=== PATIENT | female | born 1955 | race Caucasian/White ===

== ENCOUNTER 2016-10-19 16:54 | Emergency (ER) | payer OTHER ==
[~2016-10-19] VITALS: Ht 172.7 cm; Wt 75.0 kg
[~2016-10-19 16:54] MED LIST: ASPI81TA82 PO; ATOR40TA49 PO; CORE6.25 PO; HYDR-3533 PO; KLON2TAB PO; LISI2.5T55 PO; RANI150 PO; SERT-129 PO
[2016-10-19 16:59] VITALS: BP 136/80; PULSE 63; RESP 15; TEMP 97.3; O2SAT 95
--- NOTE | 2016-10-19 17:28 | PD ---
HPI Chief Complaint: Fall Time Seen by Provider: 17:05 Travel History International Travel<30 days: No Contact w/Intl Traveler<30days: No Traveled to known affect area: No History of Present Illness HPI 61yo F with PMH of CAD s/p stent, PTSD, anxiety presents to the ED with c/o left buttocks pain and left shoulder pain s/p fall off ladder today. States she was trimming shrubs and was at the fifth step of the ladder and fell backwards on her left buttocks. States she sat there for about 10 minutes and then was able to ambulate after. Denies any head trauma, LOC, chest pain, sob, n/v, abdominal pain, urinary retention or incontinence, weakness or numbness in her legs. States she felt left shoulder pain and has left elbow abrasion with tingling at the tips of her left 1-3 digits. Pt able to urinate after without any difficulties. PFSH Past Medical History Hx Anticoagulant Therapy: Yes (81 MG ASA) Arthritis: Yes Anxiety: Yes Depression: Yes Cancer: No Cardiac Catheterization: Yes Cardiovascular Problems: Yes (STENT; HEART ATTACK 2013) Chest Pain: Yes Cerebrovascular Accident: No Diminished Hearing: No Endocrine: No Gastrointestinal Disorders: No Genitourinary: Yes Headaches: Yes Immune Disorder: No Implanted Vascular Access Dvce: No Kidney Stones: No Musculoskeletal: Yes (SPINAL STENOSIS) Neurologic: Yes Psychiatric: Yes Reproductive: Yes (FIBROIDS) Respiratory: No Immunizations Current: Yes Migraines: No Myocardial Infarction: Yes Renal Failure: No Seizures: No Menopausal: Yes Past Surgical History Section: Yes Coronary Stent: Yes (X1) Gynecologic Surgery: Yes (CECAREAN SECTION 38 YEARS AGO.) Other Surgery: Yes Social History Alcohol Use: Yes (VERY RARE) Tobacco Use: Yes (1/2) Substance Use: No Allergies-Medications (Allergen,Severity, Reaction): Coded Allergies: Venlafaxine (Verified Allergy, Severe, GI UPSET, 10/19/16) Reported Meds & Prescriptions Reported Meds & Active Scripts Active Reported Vitamin D3 (Cholecalciferol) 1,000 Unit Cap 1,000 Units PO DAILY Vitamin B12 (Cyanocobalamin) 100 Mcg Tab 1,000 Mcg PO DAILY Fish Oil ([place]-3 Fatty Acids) 500 Mg Cap 300 Mg PO TID Stool Softener (Docusate Sodium) 100 Mg Cap 1 Caplet PO DAILY PRN Citalopram (Citalopram Hydrobromide) 20 Mg Tab 20 Mg PO DAILY Clonazepam 2 Mg Tab 2 Mg PO TID Nitrostat SL (Nitroglycerin) 0.4 Mg Subl 0.4 Mg SL DIRECTED PRN 1 tablet under the tongue as needed for chest pain. Repeat every 5 minutes for a total of 3 DOSES or call 911 if NO relief. Lisinopril 10 Mg Tab 10 Mg PO BID Atorvastatin (Atorvastatin Calcium) 40 Mg Tab 40 Mg PO HS Carvedilol 6.25 Mg Tab 6.25 Mg PO BID Aspirin 81 Mg Tabdr 81 Mg PO DAILY Review of Systems Except as stated in HPI: all other systems reviewed are Neg Physical Exam Narrative GENERAL: 61yo F not in distress. SKIN: Warm and dry. HEAD: Atraumatic. Normocephalic. EYES: Pupils equal and round at 3mm bilaterally. EOMI. No scleral icterus. No injection or drainage. ENT: No nasal bleeding or discharge. Mucous membranes pink and moist. NECK: Trachea midline. No JVD. CARDIOVASCULAR: Regular rate and rhythm. No murmur appreciated. RESPIRATORY: No accessory muscle use. Clear to auscultation. Breath sounds equal bilaterally. GASTROINTESTINAL: Abdomen soft, non-tender, nondistended. No rebound tenderness or guarding. MUSCULOSKELETAL: +Ecchymoses left ischium ttp. +TTP S1. LUE: +TTP left shoulder but good ROM. +Small abrasion left olecranon but no ttp. Radial pulse 2+. NEUROLOGICAL: Awake and alert. No obvious cranial nerve deficits. Motor grossly within normal limits. Normal speech. PSYCHIATRIC: Appropriate mood and affect; insight and judgment normal. Data Data Last Documented VS Vital Signs Date Time Temp Pulse Resp B/P Pulse Ox O2 Delivery O2 Flow Rate FiO2 10/19/16 17:23 16 97 Room Air 10/19/16 16:59 97.3 63 136/80 Orders Pelvis, Ap Only (Routine) (10/19/16 ) Sacrum And Coccyx (10/19/16 ) Shoulder, Limited(2vws) (10/19/16 ) Ketorolac Inj (Toradol Inj) (10/19/16 17:30) Elbow, Limited (Ap&Lat) (10/19/16 ) Tetanus/Diphtheria Tox Adult (Tetanus/Di (10/19/16 18:45) MDM Medical Decision Making Medical Screen Exam Complete: Yes Emergency Medical Condition: Yes Differential Diagnosis Contusion vs. fracture Narrative Course 61yo F with left buttocks pain s/p fall from ladder today. Pt was able to ambulate after the fall and had no urinary complaints or neurologic deficits in her legs. Xray left elbow was negative. Xray of pelvis showed intact pelvis. Xray of sacrum and coccyx are intact. Xray left shoulder showed intact shoulder. Pt is well appearing and had no abdominal tenderness on exam. Pt given toradol 30mg IM. Tetanus is not up to date so tetanus given. Pt reevaluated at bedside and pain has improved. Muscle strength intact and equal bilaterally. Diagnosis Primary Impression: Fall Qualified Code: W19.XXXA - Fall, initial encounter Patient Instructions: General Instructions Departure Forms: Tests/Procedures Additional Instructions: Please follow up with your PMD in 3-7 days. Return to the ED if symptoms worsen. Med/Other Pt SpecificInfo: Prescription(s) given Scripts Acetaminophen (Acetaminophen Extra Strength)500 Mg [id number] Mg PO Q6H PRN (PAIN SCALE 1 TO 4) #20 TAB Ref 0 Prov:Asuncion Bloom DO 10/19/16 Disposition: 01 DISCHARGE HOME Condition: Stable Asuncion Bloom DO Oct 19, 2016 17:28
[2016-10-19] MEDS ORDERED: KETOROLAC TROMETHAMINE 60 MG/2 ML (IM) VIAL IM ONE (17:30)
[2016-10-19] MEDS ORDERED: CITA20TA4 PO (17:40)
[2016-10-19] MEDS ORDERED: FISH500C PO (17:40)
[2016-10-19] MEDS ORDERED: STOO100C PO (17:40)
[2016-10-19] MEDS ORDERED: NITR0.4S SL (17:40)
[2016-10-19] MEDS ORDERED: CARV6.252 PO (17:40)
[2016-10-19] MEDS ORDERED: VITA100036 PO (17:40)
[2016-10-19] MEDS ORDERED: ATOR40TA16 PO (17:40)
[2016-10-19] MEDS ORDERED: CLON2TAB PO (17:40)
[2016-10-19] MEDS ORDERED: ASPI1TAB69 PO (17:40)
[2016-10-19] MEDS ORDERED: LISI10TA3 PO (17:40)
[2016-10-19] MEDS ORDERED: VITA100T15 PO (17:40)
--- NOTE | 2016-10-19 17:53 | RADHPO ---
EXAM DATE/TIME: 10/19/2016 17:23 [facility] COMPARISON: No previous studies available for comparison. INDICATIONS : Pelvic discomfort; fell from ladder today. MEDICAL HISTORY : None. SURGICAL HISTORY : None. ENCOUNTER: Initial ACUITY: 1 day PAIN SCORE: 7/10 LOCATION: Bilateral posterior pelvis. FINDINGS: A single frontal view of the pelvis demonstrates no evidence of fracture. The bony pelvic ring is in tact. Bony mineralization is normal. The soft tissues are intact. CONCLUSION: Intact pelvis. Jose Alfredo Marie MD on October 19, 2016 at 17:52 Board Certified Radiologist. This report was verified electronically.
--- NOTE | 2016-10-19 17:54 | RADHPO ---
EXAM DATE/TIME: 10/19/2016 17:35 [facility] COMPARISON: No previous studies available for comparison. INDICATIONS : Left elbow discomfort and abrasions. MEDICAL HISTORY : None. SURGICAL HISTORY : None. ENCOUNTER: Initial ACUITY: 1 day PAIN SCORE: 2/10 LOCATION: Left posterior elbow. FINDINGS: Two view examination of the left elbow demonstrates no soft tissue swelling, joint effusion, fracture or dislocation. Bony mineralization is normal. CONCLUSION: 1. Negative examination of the elbow. Lopez Lopez MD on October 19, 2016 at 17:53 Board Certified Radiologist. This report was verified electronically.
--- NOTE | 2016-10-19 17:55 | RADHPO ---
EXAM DATE/TIME: 10/19/2016 17:28 [facility] COMPARISON: No previous studies available for comparison. INDICATIONS : Sacral pain from fall off ladder. MEDICAL HISTORY : None. SURGICAL HISTORY : None. ENCOUNTER: Initial ACUITY: 1 day PAIN SCORE: 7/10 LOCATION: Left buttock FINDINGS: Two-view examination of the sacrum and coccyx demonstrates no evidence of fracture or malalignment. The sacral ala and foramina appear symmetric and intact. The coccyx appears unremarkable. The preve rtebral soft tissues are within normal limits. CONCLUSION: Sacrum and coccyx are intact. Jose Alfredo Marie MD on October 19, 2016 at 17:52 Board Certified Radiologist. This report was verified electronically.
--- NOTE | 2016-10-19 17:56 | RADHPO ---
EXAM DATE/TIME: 10/19/2016 17:31 [facility] COMPARISON: No previous studies available for comparison. INDICATIONS : Left shoulder pain from fall off ladder. MEDICAL HISTORY : None. SURGICAL HISTORY : None. ENCOUNTER: Initial ACUITY: 1 day PAIN SCORE: 6/10 LOCATION: Left shoulder. FINDINGS: Two view examination of the left shoulder demonstrates no evidence of fracture or dislocation. The g lenohumeral and acromioclavicular joints are maintained. Bony mineralization is normal. CONCLUSION: Intact shoulder. Jose Alfredo Marie MD on October 19, 2016 at 17:54 Board Certified Radiologist. This report was verified electronically.
[2016-10-19 18:35] VITALS: RESP 16
[2016-10-19] MEDS ORDERED: ACET500T36 PO (18:35)
[2016-10-19] MEDS ORDERED: TETANUS/DIPHTHERIA TOXOID ADULT 0.5 ML VIAL IM ONE (18:45)
[2016-10-19 19:15] VITALS: BP 166/69
== END 2016-10-19 19:30 | disposition home or self-care (01) ==
LOC: PHED 16:54
DX: M25.512 Pain in left shoulder (principal); M53.3 Sacrococcygeal disorders, not elsewhere classified; S50.312A Abrasion of left elbow, initial encounter; M79.1 Myalgia; W11.XXXA Fall on and from ladder, initial encounter; Y93.H2 Activity, gardening and landscaping; Z23 Encounter for immunization; Z72.0 Tobacco use; Z79.82 Long term (current) use of aspirin; Z87.39 Personal history of other diseases of the musculoskeletal system and connective tissue; Z86.79 Personal history of other diseases of the circulatory system; Z87.448 Personal history of other diseases of urinary system; Z86.69 Personal history of other diseases of the nervous system and sense organs; Z87.42 Personal history of other diseases of the female genital tract; Z86.59 Personal history of other mental and behavioral disorders
CPT/HCPCS: 72170; 72220; 73030; 73070; 90471; 90714; 96372; 99283; J1885

== ENCOUNTER 2016-12-08 14:10 | Observation (INO) | payer OTHER ==
[2016-12-08] VITALS (8 sets, daily range): BP systolic 117–144; BP diastolic 58–77; PULSE 49–62; RESP 16–18; TEMP 96.6–98.1; O2SAT 96–100
[~2016-12-08] VITALS: Ht 172.7 cm; Wt 72.1 kg
[~2016-12-08 14:10] MED LIST changes: +ACET500T36 PO; +ASPI1TAB69 PO; -ASPI81TA82 PO; +ATOR40TA16 PO; -ATOR40TA49 PO; +CARV6.252 PO; +CITA20TA4 PO; +CLON2TAB PO; -CORE6.25 PO; +FISH500C PO; -HYDR-3533 PO; -KLON2TAB PO; +LISI10TA3 PO; -LISI2.5T55 PO; +NITR0.4S SL; -RANI150 PO; -SERT-129 PO; +STOO100C PO; +VITA100036 PO; +VITA100T15 PO
--- NOTE | 2016-12-08 14:59 | PD ---
HPI Chief Complaint: Chest Pain Time Seen by Provider: 14:33 Travel History International Travel<30 days: No Contact w/Intl Traveler<30days: No Traveled to known affect area: No History of Present Illness HPI The patient was seen and examined in the presence of the nurse. This patient complains of chest pain. She's had symptoms on and off for the last 2 weeks. Located in the left chest and somewhat in her left side. She had the same kind of symptoms last summer and the ER physician recommended chest pain center evaluation and she left AGAINST MEDICAL ADVICE. She's not had any stress testing since. She does have history of CAD and has a stent in position. She is currently chest pain-free. She took an aspirin prior to arrival. She also complains of a bit of fluttering in the right side of her chest is not pain and new for the last 2 days. Severity is moderate. No alleviating factors. PFSH Past Medical History Hx Anticoagulant Therapy: Yes (81 MG ASA) Arthritis: Yes Anxiety: Yes Depression: Yes Cancer: No Cardiac Catheterization: Yes Cardiovascular Problems: Yes (STENT; HEART ATTACK 2013) Chest Pain: Yes Cerebrovascular Accident: No Diminished Hearing: No Endocrine: No Gastrointestinal Disorders: No Genitourinary: Yes (Hematuria ) Headaches: Yes Immune Disorder: No Implanted Vascular Access Dvce: No Kidney Stones: No Musculoskeletal: Yes (Spinal stenosis) Neurologic: Yes Psychiatric: Yes Reproductive: Yes (Fibroids) Respiratory: No Immunizations Current: Yes Migraines: No Myocardial Infarction: Yes (X's 1) Renal Failure: No Seizures: No Tetanus Vaccination: < 5 Years Influenza Vaccination: Yes ?: Not Menopausal: Yes Past Surgical History Section: Yes (X's 1) Coronary Stent: Yes (X's 1, December 2013) Gynecologic Surgery: Yes (CECAREAN SECTION 38 YEARS AGO.) Other Surgery: Yes Social History Alcohol Use: Yes ("Rarely?) Tobacco Use: Yes (08/16 PPD) Substance Use: No Allergies-Medications (Allergen,Severity, Reaction): Coded Allergies: Venlafaxine (Verified Allergy, Severe, GI UPSET, 12/08/16) Reported Meds & Prescriptions Reported Meds & Active Scripts Active Acetaminophen Extra Strength (Acetaminophen) 500 Mg Tab 500 Mg PO Q6H PRN Reported Vitamin D3 (Cholecalciferol) 1,000 Unit Cap 1,000 Units PO DAILY Vitamin B12 (Cyanocobalamin) 100 Mcg Tab 1,000 Mcg PO DAILY Fish Oil ([place]-3 Fatty Acids) 500 Mg Cap 300 Mg PO TID Stool Softener (Docusate Sodium) 100 Mg Cap 1 Caplet PO DAILY PRN Citalopram (Citalopram Hydrobromide) 20 Mg Tab 20 Mg PO DAILY Clonazepam 2 Mg Tab 2 Mg PO TID Nitrostat SL (Nitroglycerin) 0.4 Mg Subl 0.4 Mg SL DIRECTED PRN 1 tablet under the tongue as needed for chest pain. Repeat every 5 minutes for a total of 3 DOSES or call 911 if NO relief. Lisinopril 10 Mg Tab 10 Mg PO BID Atorvastatin (Atorvastatin Calcium) 40 Mg Tab 40 Mg PO HS Carvedilol 6.25 Mg Tab 6.25 Mg PO BID Aspirin 81 Mg Tabdr 81 Mg PO DAILY Review of Systems General / Constitutional: No: Fever Eyes: No: Visual changes HENT: No: Headaches Cardiovascular: Positive: Chest Pain or Discomfort, Palpitations Respiratory: No: Shortness of Breath Gastrointestinal: No: Abdominal Pain Genitourinary: No: Dysuria Musculoskeletal: No: Pain Skin: No Rash Neurologic: No: Weakness Psychiatric: No: Depression Endocrine: No: Polydipsia Hematologic/Lymphatic: No: Easy Bruising Physical Exam Narrative GENERAL: Well-nourished, well-developed patient in no apparent distress. SKIN: Focused skin assessment reveals no rash and nodules. Skin is Warm and dry. HEAD: Atraumatic. Normocephalic. EYES: Pupils equal and round. No scleral icterus. No injection or drainage. ENT: No nasal bleeding or discharge. Mucous membranes pink and moist. NECK: Trachea midline. No JVD. CARDIOVASCULAR: Regular rate and rhythm. No murmur appreciated. RESPIRATORY: No accessory muscle use. Clear to auscultation. Breath sounds equal bilaterally. GASTROINTESTINAL: Abdomen soft, non-tender, nondistended. Hepatic and splenic margins not palpable. MUSCULOSKELETAL: No obvious deformities. No clubbing. No cyanosis. No edema. NEUROLOGICAL: Awake and alert. No obvious cranial nerve deficits. Motor grossly within normal limits. Normal speech. PSYCHIATRIC: Appropriate mood and affect; insight and judgment normal. Data Data Last Documented VS Vital Signs Date Time Temp Pulse Resp B/P Pulse Ox O2 Delivery O2 Flow Rate FiO2 12/08/16 15:26 Room Air 12/08/16 15:20 51 16 117/64 96 12/08/16 14:15 98.1 Orders Electrocardiogram (12/08/16 14:56) Basic Metabolic Panel (Bmp) (12/08/16 14:56) Ckmb (Isoenzyme) Profile (12/08/16 14:56) Complete Blood Count With Diff (12/08/16 14:56) Prothrombin Time / Inr (Pt) (12/08/16 14:56) Act Partial Throm Time (Ptt) (12/08/16 14:56) Troponin I (12/08/16 14:56) Chest, Single Ap (12/08/16 14:56) Ecg Monitoring (12/08/16 14:56) Iv Access Insert/Monitor (12/08/16 14:56) Oximetry (12/08/16 14:56) Sodium Chloride 0.9% Flush (Ns Flush) (12/08/16 15:00) Labs Laboratory Tests Test 12/08/16 15:05 White Blood Count 7.2 TH/MM3 Red Blood Count 4.47 MIL/MM3 Hemoglobin 13.6 GM/DL Hematocrit 41.8 % Mean Corpuscular Volume 93.4 FL Mean Corpuscular Hemoglobin 30.5 PG Mean Corpuscular Hemoglobin 32.7 % Concent Red Cell Distribution Width 13.4 % Platelet Count 181 TH/MM3 Mean Platelet Volume 7.8 FL Neutrophils (%) (Auto) 51.5 % Lymphocytes (%) (Auto) 39.1 % Monocytes (%) (Auto) 7.0 % Eosinophils (%) (Auto) 1.9 % Basophils (%) (Auto) 0.5 % Neutrophils # (Auto) 3.8 TH/MM3 Lymphocytes # (Auto) 2.8 TH/MM3 Monocytes # (Auto) 0.5 TH/MM3 Eosinophils # (Auto) 0.1 TH/MM3 Basophils # (Auto) 0.0 TH/MM3 CBC Comment DIFF FINAL Differential Comment Prothrombin Time 10.9 SEC Prothromb Time International 1.0 RATIO Ratio Activated Partial 25.5 SEC Thromboplast Time Sodium Level 145 MEQ/L Potassium Level 3.8 MEQ/L Chloride Level 107 MEQ/L Carbon Dioxide Level 30.6 MEQ/L Anion Gap 7 MEQ/L Blood Urea Nitrogen 14 MG/DL Creatinine 1.10 MG/DL Estimat Glomerular Filtration 50 ML/MIN Rate Random Glucose 75 MG/DL Calcium Level 8.7 MG/DL Total Creatine Kinase 95 U/L Troponin I LESS THAN 0.02 NG/ML MDM Medical Decision Making Medical Screen Exam Complete: Yes Emergency Medical Condition: Yes Medical Record Reviewed: Yes Differential Diagnosis Differential diagnosis includes RI, angina, pericarditis, pleurisy, GERD, anxiety. Narrative Course I have reviewed the patient's electronic medical record. Reviewed her February 2016 ER evaluation for chest pain IV placed I reviewed the EKG which shows sinus rhythm but no acute ST elevation I reviewed the chest x-ray which is normal Extended cardiac monitoring shows sinus rhythm without ectopy CBC is normal Metabolic profile is normal CK is normal Troponin is normal Coagulation studies are normal Patient has known coronary artery disease. Workup here is negative. I'm recommending 23 hour observation in the chest pain center in order to rule out cardiac cause of her symptoms. Patient is agreeable. I reviewed with the hospitalist. Diagnosis Primary Impression: Chest pain in adult Additional Impression: Coronary artery disease Qualified Code: I25.10 - Coronary artery disease due to calcified coronary lesion Admitting Information Admitting Physician Requests: Observation Humphrey Hill MD Dec 08, 2016 14:59
[2016-12-08] MEDS ORDERED: SODIUM CHLORIDE 0.9% FLUSH 10 ML FLUSH IVF PRN (15:00)
[2016-12-08 15:24] LABS: AUTOMATED NEUTROPHIL # 3.8 TH/MM3 (1.8-7.7); BASOPHIL % 0.5 % (0.0-2.0); EOSINOPHIL # 0.1 TH/MM3 (0-0.4); EOSINOPHIL % 1.9 % (0.0-4.0); HEMATOCRIT 41.8 % (35.0-46.0); HEMO FLAGS DIFF FINAL; LYMPH % 39.1 % (9.0-44.0); LYMPHOCYTE # 2.8 TH/MM3 (1.0-4.8); MEAN CELL VOLUME 93.4 FL (80.0-100.0); MEAN CORPUSCULAR HEMOGLOBIN 30.5 PG (27.0-34.0); MEAN CORPUSCULAR HGB CONC 32.7 % (32.0-36.0); NEUT % 51.5 % (16.0-70.0); PLATELET COUNT 181 TH/MM3 (150-450); RED BLOOD COUNT 4.47 MIL/MM3 (4.00-5.30); RED CELL DISTRIBUTION WIDTH 13.4 % (11.6-17.2); WHITE BLOOD COUNT 7.2 TH/MM3 (4.0-11.0)
[2016-12-08 15:36] LABS: CHLORIDE 107 MEQ/L (98-107); POTASSIUM 3.8 MEQ/L (3.5-5.1); SODIUM (NA) 145 MEQ/L (136-145)
[2016-12-08 15:40] LABS: ANION GAP 7 MEQ/L (5-15); BICARBONATE 30.6 MEQ/L (21.0-32.0); BLOOD UREA NITROGEN 14 MG/DL (7-18)
[2016-12-08 15:43] LABS: APTT (PATIENT) 25.5 SEC (24.3-30.1); GLOMERULAR FILTRATION RATE 50 ML/MIN (>89); PROTHROMBIN TIME - PATIENT 10.9 SEC (9.8-11.6)
--- NOTE | 2016-12-08 15:43 | RADHPO ---
EXAM DATE/TIME: 12/08/2016 15:08 [facility] COMPARISON: CHEST SINGLE AP, March 10, 2016, 12:26. INDICATIONS : Left chest discomfort. MEDICAL HISTORY : Myocardial infarction. SURGICAL HISTORY : Coronary artery stent. ENCOUNTER: Initial ACUITY: 1 day PAIN SCORE: 3/10 LOCATION: Left chest FINDINGS: A single view of the chest demonstrates the lungs to be symmetrically aerated without evidence of mas s, infiltrate or effusion. The cardiomediastinal contours are unremarkable. Osseous structures are intact. CONCLUSION: No acute disease. Jim Easton MD FACR on December 08, 2016 at 15:41 Board Certified Radiologist. This report was verified electronically.
[2016-12-08 15:50] LABS: CREATINE KINASE 95 U/L (26-192)
[2016-12-08] MEDS ORDERED: NALOXONE HCL 0.4 MG/ML AMP IV PRN (17:15)
[2016-12-08] MEDS ORDERED: MORPHINE SULFATE 4 MG/ML INJ IV PRN (17:15)
[2016-12-08] MEDS ORDERED: SODIUM CHLORIDE 0.9% FLUSH 10 ML FLUSH IV FLUSH PRN (17:15)
[2016-12-08] MEDS: DOCUSATE SODIUM 100 MG CAP PO SCH (20:28)
[2016-12-08] MEDS: LISINOPRIL 10 MG TAB PO SCH (20:28)
[2016-12-08] MEDS: ATORVASTATIN 40 MG TAB PO SCH (20:28)
[2016-12-08] MEDS: SODIUM CHLORIDE 0.9% FLUSH 10 ML FLUSH IV FLUSH SCH (20:29)
[2016-12-08] MEDS ORDERED: CARVEDILOL 6.25 MG TAB PO SCH (21:00)
[2016-12-09] VITALS (11 sets, daily range): BP systolic 127–153; BP diastolic 68–79; PULSE 48–60; RESP 16–20; TEMP 97.3–98.5; O2SAT 95–98
[2016-12-09 07:23] LABS: AUTOMATED NEUTROPHIL # 3.4 TH/MM3 (1.8-7.7); BASOPHIL % 0.5 % (0.0-2.0); EOSINOPHIL # 0.2 TH/MM3 (0-0.4); EOSINOPHIL % 2.2 % (0.0-4.0); HEMATOCRIT 41.7 % (35.0-46.0); HEMO FLAGS DIFF FINAL; LYMPH % 41.8 % (9.0-44.0); LYMPHOCYTE # 2.9 TH/MM3 (1.0-4.8); MEAN CELL VOLUME 92.4 FL (80.0-100.0); MEAN CORPUSCULAR HEMOGLOBIN 31.5 PG (27.0-34.0); MEAN CORPUSCULAR HGB CONC 34.1 % (32.0-36.0); MONO % 7.6 % (0.0-8.0); NEUT % 47.9 % (16.0-70.0); PLATELET COUNT 152 TH/MM3 (150-450); RED BLOOD COUNT 4.51 MIL/MM3 (4.00-5.30); RED CELL DISTRIBUTION WIDTH 12.9 % (11.6-17.2)
[2016-12-09 07:41] LABS: POTASSIUM 3.9 MEQ/L (3.5-5.1)
[2016-12-09 07:42] LABS: BICARBONATE 30.3 MEQ/L (21.0-32.0)
--- NOTE | 2016-12-09 08:16 | HHI.HP ---
[facility] Kendy Jackman Admission Diagnosis chest pain Diagnoses: (1) Chest pain in adult Diagnosis: Principal (2) Coronary artery disease Diagnosis: Secondary (3) Hypertension Diagnosis: Secondary (4) Hyperlipidemia Diagnosis: Secondary (5) History of coronary artery stent placement Diagnosis: Secondary (6) Tobacco abuse Diagnosis: Secondary Chief Complaint: Chest pain Travel History International Travel<30 Days: No Contact w/Intl Traveler <30 Da: No Traveled to Known Affected Are: No History of Present Illness 61-year-old female with known history of hypertension, hyperlipidemia , coronary disease, cardiomyopathy with ejection fraction 2530 percent, coronary artery disease status post stenting of OM, tobacco use, anxiety and depression who presented to hospital because of chest discomfort. Patient states that she is had chest discomfort for the last 2 weeks. She states it is located on the left side of her chest, left rib cage area and into her left back. She states that happens approximate 45 times a day lasting for a couple minutes at a time. The pain can happen at rest and exertion. It is worsened whenever she is walking the dog and holding the leash on that side. It is reproducible on palpation. She denies any alleviating factors that resolved on its own. She denies any nausea, vomiting, diaphoresis, shortness of breath, dyspnea, lightheadedness, dizziness. Because she had a previous heart attack 3 years ago she came to the hospital for evaluation. She is followed by her primary medical doctor on a regular basis. She does go to Dr. Camacho on a yearly basis. Plans for echocardiogram to be done in May of this year. Patient denies any recent stress testing. Review of Systems Constitutional: DENIES: Diaphoretic episodes, Fatigue, Fever, Weight gain, Weight loss, Chills, Dizziness, Change in appetite, Night Sweats Eyes: DENIES: Blurred vision, Diplopia, Eye inflammation, Eye pain, Vision loss , Double Vision Ears, nose, mouth, throat: DENIES: Hearing loss, Vertigo, Nasal discharge, Throat pain, Ear Pain, Running Nose, Sinus Pain Respiratory: COMPLAINS OF: Cough, DENIES: Apneas, Snoring, Wheezing, Hemoptysis, Sputum production, Shortness of breath Cardiovascular: COMPLAINS OF: Chest pain, DENIES: Palpitations, Syncope, Dyspnea on Exertion, Lower Extremity Edema, Orthopnea Gastrointestinal: DENIES: Abdominal pain, Black stools, Bloody stools, Constipation, Diarrhea, Nausea, Vomiting, Difficulty Swallowing, Anorexia Psychiatric: COMPLAINS OF: Anxiety, Depression, DENIES: Confusion, Mood changes Past Family Social History Past Medical History Hypertension Hyperlipidemia History myocardial infarction Coronary artery disease status post stenting of OM Cardiomyopathy with ejection fraction 2530 percent Tobacco use Anxiety and depression Spinal stenosis Past Surgical History Cardiac catheterization with stenting of OM Reported Medications Reported Meds & Active Scripts Active Acetaminophen Extra Strength (Acetaminophen) 500 Mg Tab 500 Mg PO Q6H PRN Reported Vitamin D3 (Cholecalciferol) 1,000 Unit Cap 1,000 Units PO DAILY Vitamin B12 (Cyanocobalamin) 100 Mcg Tab 1,000 Mcg PO DAILY Fish Oil (Ste[place]-3 Fatty Acids) 500 Mg Cap 300 Mg PO TID Stool Softener (Docusate Sodium) 100 Mg Cap 1 Caplet PO DAILY PRN Citalopram (Citalopram Hydrobromide) 20 Mg Tab 20 Mg PO DAILY Clonazepam 2 Mg Tab 2 Mg PO TID Nitrostat SL (Nitroglycerin) 0.4 Mg Subl 0.4 Mg SL DIRECTED PRN 1 tablet under the tongue as needed for chest pain. Repeat every 5 minutes for a total of 3 DOSES or call 911 if NO relief. Lisinopril 10 Mg Tab 10 Mg PO BID Atorvastatin (Atorvastatin Calcium) 40 Mg Tab 40 Mg PO HS Carvedilol 6.25 Mg Tab 6.25 Mg PO BID Aspirin 81 Mg Tabdr 81 Mg PO DAILY Allergies: Coded Allergies: Venlafaxine (Verified Allergy, Severe, GI UPSET, 12/08/16) Family History Reviewed is significant for both mother and father with heart disease. Denies any lung disease, cancer, seizures, stroke Social History Patient is trying to quit cigarettes. She is up to a pack a cigarettes a day since she was in [employer]. Does drink alcohol rarely. Denies any illicit drugs Physical Exam Vital Signs Vital Signs Date Time Temp Pulse Resp B/P Pulse Ox O2 Delivery O2 Flow Rate FiO2 12/09/16 04:11 97.3 50 16 127/71 96 12/09/16 00:26 97.7 48 16 130/76 97 12/08/16 20:54 51 12/08/16 20:29 96.6 50 16 144/77 96 12/08/16 20:02 62 12/08/16 18:35 51 16 133/58 95 12/08/16 17:30 52 16 135/63 96 Room Air 12/08/16 17:30 Room Air 12/08/16 16:44 49 18 128/70 100 Room Air 12/08/16 15:26 Room Air 12/08/16 15:20 51 16 117/64 96 Room Air 12/08/16 14:30 60 12/08/16 14:15 98.1 60 16 123/71 98 Physical Exam GENERAL: Well-developed, well-nourished, in no acute distress. alert and orientated HEENT: Head is normocephalic without any lesions or masses noted. Facial features are symmetric. Eyes: Pupils equal round reactive to light. Extraocular muscles are intact. Conjunctivae were clear. Oropharyngeal: Pharynx without any erythema edema. Tongue is midline without deviation. Buccal mucosa is moist without any masses or lesions NECK: Supple without any masses. Trachea midline no deviation. No JVD, no bruits are appreciated CARDIAC: Regular rhythm, regular rate. S1/S2 are heard. No murmurs gallops or rubs. Reproducible palpable tenderness along the fifth and sixth rib on lateral chest LUNGS: Clear to auscultation bilaterally. No wheeze, rhonchi or rales. No use of accessory muscles on inspiration or expiration. ABDOMEN: Soft, nontender. Nondistended. Bowel sounds heard in all 4 quadrants. No organomegaly or masses. Negative rebound, negative guarding EXTREMITIES: No edema, pulses are equal bilaterally. No cyanosis or clubbing NEUROLOGY: Mood and affect appear appropriate. Cranial nerves II through XII grossly intact. Muscle strength 5/5 in upper and lower extremities bilaterally. Deep tendon reflexes are 2+ in upper and lower extremities bilaterally. Laboratory Laboratory Tests Test 12/08/16 12/08/16 12/08/16 12/09/16 15:05 18:10 21:10 06:13 White Blood Count 7.2 7.0 Red Blood Count 4.47 4.51 Hemoglobin 13.6 14.2 Hematocrit 41.8 41.7 Mean Corpuscular Volume 93.4 92.4 Mean Corpuscular Hemoglobin 30.5 31.5 Mean Corpuscular Hemoglobin 32.7 34.1 Concent Red Cell Distribution Width 13.4 12.9 Platelet Count 181 152 Mean Platelet Volume 7.8 8.4 Neutrophils (%) (Auto) 51.5 47.9 Lymphocytes (%) (Auto) 39.1 41.8 Monocytes (%) (Auto) 7.0 7.6 Eosinophils (%) (Auto) 1.9 2.2 Basophils (%) (Auto) 0.5 0.5 Neutrophils # (Auto) 3.8 3.4 Lymphocytes # (Auto) 2.8 2.9 Monocytes # (Auto) 0.5 0.5 Eosinophils # (Auto) 0.1 0.2 Basophils # (Auto) 0.0 0.0 CBC Comment DIFF FINAL DIFF FINAL Differential Comment Prothrombin Time 10.9 Prothromb Time International 1.0 Ratio Activated Partial 25.5 Thromboplast Time Sodium Level 145 147 Potassium Level 3.8 3.9 Chloride Level 107 108 Carbon Dioxide Level 30.6 30.3 Anion Gap 7 9 Blood Urea Nitrogen 14 14 Creatinine 1.10 0.88 Estimat Glomerular Filtration 50 65 Rate Random Glucose 75 87 Calcium Level 8.7 9.0 Total Creatine Kinase 95 Troponin I LESS THAN 0.02 LESS THAN 0.02 LESS THAN 0.02 Result Diagram: 12/09/16 0613 12/09/16 0613 Imaging Last Impressions Chest X-Ray 12/08/16 1456 Signed Impressions: Service Date/Time: Thursday, December 08, 2016 15:08 - CONCLUSION: No acute disease. Jim Easton MD FACR Assessment and Plan Assessment and Plan 61-year-old female who has known history of significant cardiac history who presented to hospital with two-week history of intermittent self resolving chest discomfort Chest pain, atypical Likely musculoskeletal as the pt fell off of a ladder three weeks ago and hurt the same area. The site is tender to palpation. Patient with increased risk factors to include age, hypertension, hyperlipidemia, coronary disease, cardiomyopathy, tobacco use, family history of heart disease Patient has been ruled out for acute coronary event with serial cardiac enzymes which are negative Serial EKGs were performed and reviewed by myself and compared to old EKGs. At this time patient has extensive ST-T changes, which compared to previous seen to have improved We'll pursue nuclear stress test rule out any underlying ischemia Aspirin, Coreg, atorvastatin, lisinopril has been continued. -- pain control for costochondritis. Hypertension, hyperlipidemia, coronary artery disease, cardiomyopathy, history of myocardial infarctions Home medications have been continued Anxiety depression Home medications have been continued DVT prevention Sequential compression devices Written by Humphrey Mckeon, acting as scribe for Dr. Zarate on 12/09/16 at 08: 15. Discharge disposition Discharge home in stable condition if stress test is negative Activity: Ad lawrence. Diet: Healthy heart diet Medications per medication reconciliation Follow-up with primary medical doctor and [employer] in one week Discussed Condition With This note was transcribed by scribe Humphrey Mckeon. I, Dr. Williams Zarate personally performed the history, physical exam, and medical decision making; and confirmed the accuracy of the information in the transcribed note. Authenticated by Dr. Williams Zarate on 12/09/16 at 13:42. Problem Qualifiers (1) Coronary artery disease: Qualified Code: I25.10 - Coronary artery disease due to calcified coronary lesion (2) Hypertension: Qualified Code: I15.9 - Secondary hypertension (3) Hyperlipidemia: Qualified Code: E78.5 - Hyperlipidemia, unspecified hyperlipidemia type Humphrey Mckeon Dec 09, 2016 08:16 Williams Zarate DO Dec 09, 2016 13:42
[2016-12-09] MEDS: DOCUSATE SODIUM 100 MG CAP PO SCH ×2 (09:00→21:00)
[2016-12-09] MEDS: LISINOPRIL 10 MG TAB PO SCH ×2 (09:00→21:45)
[2016-12-09] MEDS: CITALOPRAM HYDROBROMIDE 20 MG TAB PO SCH (10:11)
[2016-12-09] MEDS: ASPIRIN EC 81 MG TABEC PO SCH (10:12)
[2016-12-09] MEDS: SODIUM CHLORIDE 0.9% FLUSH 10 ML FLUSH IV FLUSH SCH ×2 (10:13→21:44)
[2016-12-09] MEDS ORDERED: REGADENOSON INJ 0.4 MG/5 ML SYR IV ONE (13:10)
--- NOTE | 2016-12-09 13:46 | RADHPO ---
EXAM DATE/TIME: 12/09/2016 12:39 [place] COMPARISON: No previous studies available for comparison. INDICATIONS : Left sided chest pain for two weeks. ST segment changes. Myocardial infarction. DOSE: 26.7 mCi Tc99m Myoview at stress. 8.7 mCi Tc99m Myoview at rest. 0.4 mg Lexiscan STRESS SYMPTOMS: Shortness of breath and flush. EJECTION FRACTION: 30% MEDICAL HISTORY : Hypertension. Cardiovascular disease SURGICAL HISTORY : section. Coronary artery stent. ENCOUNTER: Initial ACUITY: 2 weeks PAIN SCALE: 7/10 LOCATION: Left chest TECHNIQUE: The patient underwent pharmacologic stress with infusion of prescribed dose. Continuous ECG tracing was monitored during stress. Gated SPECT imaging was performed after stress and conventional SPECT i maging was performed at rest. The examination was performed on a SPECT/CT scanner, both attenuation and non-corrected datasets were reviewed. FINDINGS: DISTRIBUTION: The maximum perfused segment at stress is in the septal wall. PERFUSION STUDY: There is a small fixed anterior wall defect identified. There is also a small reversible defect suspe cted at the inferior wall. 3GATED STUDY: There is global hypokinesis. CONCLUSION: 1. Global hypokinesis with ejection fraction of 30%. 2. Reversible perfusion defect inferior wall and fixed anterior wall defect. RISK CATEGORY: High (>3% Annual Mortality Rate) Andrew Lyon MD on December 09, 2016 at 13:42 Board Certified Radiologist. This report was verified electronically.
--- NOTE | 2016-12-09 13:55 | TR ---
Date Performed: 12/09/2016 Time Performed: 12:59:18 DOCTOR: Uri Oneal DRUG LIST: CLINICAL HISTORY: CHEST PAIN REASON FOR TEST: Chest pain WITH ST CHANGES REASON FOR ENDING: OBSERVATION: CONCLUSION: Lexiscan stress test was performed under standard four minute protocol. Radionuclide was injected one minute prior to ending the test. Developed shortness of breath and felt hot. ECG tr acings at peak stress show borderline ischemic changes leads II, III, AVF and V6. Recovery was quick and uneventful with resolution of symptoms. Nuclear imaging and interpretation are pending. COMMENTS:
[2016-12-09] MEDS: CARVEDILOL 3.125 MG TAB PO SCH ×2 (14:00→21:00)
--- NOTE | 2016-12-09 19:14 | EKG ---
Date Performed: 12/08/2016 Time Performed: 21:07:28 PTAGE: 61 years EKG: Sinus bradycardia. Extensive ST-T changes Abnormal ECG PREVIOUS TRACING : 12/08/2016 14.33 Compared to prior tracing no significant change DOCTOR: Conrad Cardoza Interpretating Date/Time 12/09/2016 19:12:40
--- NOTE | 2016-12-09 19:20 | EKG ---
Date Performed: 12/08/2016 Time Performed: 17:59:56 PTAGE: 61 years EKG: Sinus bradycardia Extensive ST-T changes Abnormal ECG PREVIOUS TRACING : 12/08/2016 14.33 Compared to prior tracing no significant change DOCTOR: Conrad Cardoza Interpretating Date/Time 12/09/2016 19:19:31
--- NOTE | 2016-12-09 19:27 | EKG ---
Date Performed: 12/08/2016 Time Performed: 14:33:56 PTAGE: 61 years EKG: Sinus bradycardia Extensive ST-T changes Abnormal ECG PREVIOUS TRACING : 03/10/2016 12.24 Compared to prior tracing no significant change DOCTOR: Conrad Cardoza Interpretating Date/Time 12/09/2016 19:25:45
--- NOTE | 2016-12-09 20:01 | MB ---
cc: VALENTINA NICOLE DATE OF CONSULTATION: 12/09/2016. REASON FOR CONSULTATION: Chest pain. HISTORY OF PRESENT ILLNESS: 61-year-old female with past medical history significant for coronary artery disease status post percutaneous coronary intervention and drug-eluting stent in 2013 in the setting of a STEMI, hypertension, hyperlipidemia, active smoker, severe systolic dysfunction with an ejection fraction of 30% who presented to the [facility] complaint of chest discomfort. She was admitted for cardiac rule out. She had an unremarkable EKG as well as cardiac markers. Myocardial perfusion study ordered revealed a fixed defect in the anterior wall and a reversible defect in the inferior wall for which cardiology has been consulted for further management and evaluation. Regarding the chest pain, she states that the left-sided chest discomfort has been going on for the last two weeks. It is located to the left side of the chest and sometimes radiates to her back lasting for several minutes. She denies nausea, vomiting, diarrhea, diaphoresis shortness of breath, dyspnea, lightheaded, dizziness, leg edema and syncope, chest trauma. REVIEW OF SYSTEMS: Review of systems negative except for what is mentioned in the history of present illness. PAST MEDICAL HISTORY: 1. Hypertension. 2. Hyperlipidemia. 3. Coronary artery disease status post stenting of the obtuse marginal 4. Left ventricular systolic dysfunction with an ejection fraction of 30%. 5. Tobacco abuse. 6. Anxiety. 7. Depression. 8. Spinal stenosis. PAST SURGICAL HISTORY: 1. section. 2. Percutaneous coronary intervention. CARDIAC MEDICATIONS AT HOME: 1. Aspirin 81 milligrams p.o. daily. 2. Lipitor 40 milligrams p.o. daily. 3. Coreg 6.25 milligrams p.o. twice a day. 4. Lisinopril 10 milligrams p.o. twice a day. 5. Nitroglycerin 0.4 milligrams sublingual PRN for chest pain. ALLERGIES: 1. VENLAFAXINE. FAMILY HISTORY: Both father and mother have heart disease. SOCIAL HISTORY: Smoker. Social alcohol. No illicit drug use. PHYSICAL EXAMINATION: VITAL SIGNS: Temperature 98.1, pulse 50, respiratory rate 16, blood pressure 153 /70, 02 saturation 98% on room air. GENERAL: She is awake, alert and oriented times three in no acute distress. NECK: No jugular venous distention. No carotid bruits. HEART: Regular rate and rhythm. No murmurs, rubs or gallops. LUNGS: Clear to auscultation bilaterally. ABDOMEN: The abdomen is soft, nontender and nondistended. EXTREMITIES: No cyanosis or edema. Pulses throughout. DATA: CBC: Hemoglobin 14, hematocrit 41, platelet count 152,000. INR 1 Chemistries: Sodium 147, potassium 3.9, BUN 14, creatinine 0.88. Troponin less than 0.2 x3. IMAGING STUDIES: Chest x-ray: No acute cardiopulmonary process. Myocardial perfusion study shows global hypokinesis with ejection fraction of 30 % and an irreversible perfusion defect in the inferior wall as well as a fixed anterior wall defect. EKG: Normal sinus rhythm. ASSESSMENT AND PLAN: 61-year-old female with known coronary artery disease who presents with chest pain and noninvasive cardiac studies are suggestive of reversible ischemia in the inferior wall. Thus, I would think it would be reasonable to pursue a left heart catheterization to further assess if there is any coronary artery disease progression. The risks and benefits of the left heart catheterization / percutaneous coronary intervention include but are not limited to neurovascular trauma, infection, renal failure, emergent bypass surgery, neurovascular trauma , stroke and have been explained to the patient. The patient understands the risks and is willing to proceed. RECOMMENDATIONS: 1. Left heart catheterization on Sunday. 2. Continue aggressive medical management for secondary prevention of coronary artery disease. The patient should be on aspirin, beta lori, statins, RORY inhibitors and long-acting nitrates. Thank you for the opportunity to participate in the care of this patient. Further therapy to be determined MD LISET Raymundo/JCC /7:29 PM /7:43 PM KWESI
[2016-12-09] MEDS: ATORVASTATIN 40 MG TAB PO SCH (21:44)
[2016-12-09] MEDS: clonazePAM 1 MG TAB PO PRN (22:12)
[2016-12-09] MEDS: ACETAMINOPHEN 325 MG TAB PO PRN (22:12)
[2016-12-10] VITALS (25 sets, daily range): BP systolic 103–159; BP diastolic 60–73; PULSE 47–89; RESP 17–20; TEMP 97.7–98.4; O2SAT 95–99
--- NOTE | 2016-12-10 08:33 | PD.CARD.PN ---
Subjective Subjective Remarks Overnight events noted. NSVT No CV complaints Objective Vital Signs / I&O Vital Signs Date Time Temp Pulse Resp B/P Pulse Ox O2 Delivery O2 Flow Rate FiO2 12/10/16 07:43 97.7 53 17 151/73 96 12/10/16 06:00 47 12/10/16 05:00 50 12/10/16 04:00 51 12/10/16 04:00 98.3 51 18 138/64 95 12/10/16 04:00 Room Air 12/10/16 03:00 49 12/10/16 02:00 48 12/10/16 01:00 50 12/10/16 00:00 Room Air 12/10/16 00:00 54 12/10/16 00:00 54 18 12/09/16 23:00 53 12/09/16 22:00 52 12/09/16 21:00 54 12/09/16 20:00 98.0 50 20 141/68 96 12/09/16 20:00 50 12/09/16 20:00 Room Air 12/09/16 18:08 50 12/09/16 17:56 53 12/09/16 17:30 98.1 51 16 153/70 98 12/09/16 12:00 98.0 60 17 139/79 95 I/O 12/09/16 12/09/16 12/09/16 12/10/16 12/10/16 12/10/16 07:00 15:00 23:00 07:00 15:00 23:00 Intake Total 490 ml Balance 490 ml Intake Oral 480 ml IV Total 10 ml # Voids 2 3 # Bowel Movements 0 Physical Exam GENERAL: Well-nourished, well-developed patient. SKIN: Warm and dry. HEAD: Normocephalic. EYES: No scleral icterus. No injection or drainage. NECK: Supple, trachea midline. No JVD or lymphadenopathy. CARDIOVASCULAR: Regular rate and rhythm without murmurs, gallops, or rubs. RESPIRATORY: Breath sounds equal bilaterally. No accessory muscle use. GASTROINTESTINAL: Abdomen soft, non-tender, nondistended. EXTREMITIES: No cyanosis, or edema. NEUROLOGICAL: Awake, alert, and oriented x 3. Non-focal. Assessment and Plan Problem List: (1) Coronary artery disease Assessment and Plan: + MPI C in AM Keep NPO after midnight Continue aggressive medical therapy for CAD (2) Hyperlipidemia (3) Hypertension (4) Chest pain in adult (5) Anxiety and depression Problem Qualifiers (1) Coronary artery disease: Qualified Code: I25.10 - Coronary artery disease due to calcified coronary lesion (2) Hyperlipidemia: Qualified Code: E78.5 - Hyperlipidemia, unspecified hyperlipidemia type (3) Hypertension: Qualified Code: I15.9 - Secondary hypertension Marlon Shaffer MD Dec 10, 2016 08:33
[2016-12-10] MEDS: LISINOPRIL 10 MG TAB PO SCH ×2 (09:52→21:00)
[2016-12-10] MEDS: CITALOPRAM HYDROBROMIDE 20 MG TAB PO SCH (09:52)
[2016-12-10] MEDS: ASPIRIN EC 81 MG TABEC PO SCH (09:52)
[2016-12-10] MEDS: DOCUSATE SODIUM 100 MG CAP PO SCH ×2 (09:52→21:00)
[2016-12-10] MEDS: ACETAMINOPHEN 325 MG TAB PO PRN (09:53)
[2016-12-10] MEDS: CARVEDILOL 3.125 MG TAB PO SCH ×2 (09:53→21:00)
[2016-12-10] MEDS: SODIUM CHLORIDE 0.9% FLUSH 10 ML FLUSH IV FLUSH SCH ×2 (09:53→21:00)
--- NOTE | 2016-12-10 10:11 | HHI.PR ---
Subjective Remarks No chest pain today. Reversible cardiac ischemic defect at the inferior wall is seen and she is scheduled for a heart cath tomorrow. No complaints from the patient. She agrees with the treatment recommendations. Objective Vital Signs Date Time Temp Pulse Resp B/P Pulse Ox O2 Delivery O2 Flow Rate FiO2 12/10/16 08:00 96 Room Air 12/10/16 07:43 97.7 53 17 151/73 96 12/10/16 06:00 47 12/10/16 05:00 50 12/10/16 04:00 51 12/10/16 04:00 98.3 51 18 138/64 95 12/10/16 04:00 Room Air 12/10/16 03:00 49 12/10/16 02:00 48 12/10/16 01:00 50 12/10/16 00:00 Room Air 12/10/16 00:00 54 12/10/16 00:00 54 18 12/09/16 23:00 53 12/09/16 22:00 52 12/09/16 21:00 54 12/09/16 20:00 98.0 50 20 141/68 96 12/09/16 20:00 50 12/09/16 20:00 Room Air 12/09/16 18:08 50 12/09/16 17:56 53 12/09/16 17:30 98.1 51 16 153/70 98 12/09/16 12:00 98.0 60 17 139/79 95 I/O 12/09/16 12/09/16 12/09/16 12/10/16 12/10/16 12/10/16 07:00 15:00 23:00 07:00 15:00 23:00 Intake Total 490 ml Balance 490 ml Intake Oral 480 ml IV Total 10 ml # Voids 2 3 # Bowel Movements 0 Result Diagram: 12/09/16 0613 12/09/16 0613 Imaging Last Impressions Myocardial Perfusion Scan Nuc Med 12/09/16 0000 Signed Impressions: Service Date/Time: Friday, December 09, 2016 12:39 - CONCLUSION: 1. Global hypokinesis with ejection fraction of 30%%. 2. Reversible perfusion defect inferior wall and fixed anterior wall defect. RISK CATEGORY: High (>3%% Annual Mortality Rate) Andrew Lyon MD Chest X-Ray 12/08/16 0102 Signed Impressions: Service Date/Time: Thursday, December 08, 2016 15:08 - CONCLUSION: No acute disease. Jim Easton MD FACR Objective Remarks GENERAL: NAD, A&Ox3 SKIN: Warm and dry. HEAD: Normocephalic. EYES: No scleral icterus. No injection or drainage. NECK: Supple, trachea midline. No JVD or lymphadenopathy. CARDIOVASCULAR: Regular rate and rhythm without murmurs, gallops, or rubs. RESPIRATORY: Breath sounds equal bilaterally. No accessory muscle use. GASTROINTESTINAL: Abdomen soft, non-tender, nondistended. MUSCULOSKELETAL: No cyanosis, or edema. BACK: Nontender without obvious deformity. No CVA tenderness. Medications and IVs Administered Medications Medications (Trade) Dose Ordered Sig/Kenny Route PRN Reason Start Time Stop Time Status Last Admin Dose Admin Aspirin (Ecotrin Ec) 81 mg DAILY PO 12/09/16 09:00 12/10/16 09:52 Atorvastatin Calcium (Lipitor) 40 mg HS PO 12/08/16 21:00 12/09/16 21:44 Citalopram Hydrobromide (CeleXA) 20 mg DAILY PO 12/09/16 09:00 12/10/16 09:52 Clonazepam (KlonoPIN) 1 mg TID PRN PO Anxiety 12/08/16 17:15 12/09/16 22:12 Lisinopril (Prinivil) 10 mg BID PO 12/08/16 21:00 12/10/16 09:52 Sodium Chloride (NS Flush) 2 ml BID IV FLUSH 12/08/16 21:00 12/10/16 09:53 Docusate Sodium (Colace) 100 mg Q12H PO 12/08/16 21:00 12/10/16 09:52 Acetaminophen (Tylenol) 650 mg Q6H PRN PO PAIN SCALE 1 TO 2 12/08/16 17:15 12/10/16 09:53 Carvedilol (Coreg) 3.125 mg Q12HR PO 12/09/16 14:00 12/09/16 14:00 A/P Problem List: (1) Chest pain in adult ICD Code: R07.9 Assessment & Plan: Cardiology following Signs of reversible disease Cardiac cath in AM No change to present management (2) Hypertension ICD Code: I10 Assessment & Plan: BP stable Follow BP Continue current treatments (3) Hyperlipidemia ICD Code: E78.5 Assessment & Plan: Statin Follow FLP as an outpatient No changes today (4) Coronary artery disease ICD Code: I25.10 Assessment & Plan: Cardiac cath in AM She has one prior stent related to an old [place] She may need another stent (5) Tobacco abuse ICD Code: Z72.0 Assessment & Plan: Counseled to quit Problem Qualifiers (1) Hypertension: Qualified Code: I15.9 - Secondary hypertension (2) Hyperlipidemia: Qualified Code: E78.5 - Hyperlipidemia, unspecified hyperlipidemia type (3) Coronary artery disease: Qualified Code: I25.10 - Coronary artery disease due to calcified coronary lesion Rolando Whitfield MD Dec 10, 2016 10:11
[2016-12-10] MEDS: clonazePAM 1 MG TAB PO PRN (16:42)
[2016-12-10] MEDS: ATORVASTATIN 40 MG TAB PO SCH (21:00)
[2016-12-11] VITALS (25 sets, daily range): BP systolic 119–159; BP diastolic 60–82; PULSE 49–62; RESP 18–20; TEMP 97.8–98.4; O2SAT 95–98
[2016-12-11 06:53] LABS: HEMATOCRIT 43.1 % (35.0-46.0); MEAN CELL VOLUME 92.9 FL (80.0-100.0); MEAN CORPUSCULAR HEMOGLOBIN 30.6 PG (27.0-34.0); MEAN CORPUSCULAR HGB CONC 32.9 % (32.0-36.0); PLATELET COUNT 152 TH/MM3 (150-450); RED BLOOD COUNT 4.64 MIL/MM3 (4.00-5.30); RED CELL DISTRIBUTION WIDTH 13.7 % (11.6-17.2); REVIEW FLAG FINAL; WHITE BLOOD COUNT 7.7 TH/MM3 (4.0-11.0)
[2016-12-11 07:02] LABS: BICARBONATE 29.3 MEQ/L (21.0-32.0); POTASSIUM 3.5 MEQ/L (3.5-5.1)
[2016-12-11] MEDS: ASPIRIN EC 81 MG TABEC PO SCH (08:40)
[2016-12-11] MEDS: DOCUSATE SODIUM 100 MG CAP PO SCH ×2 (08:40→21:14)
[2016-12-11] MEDS: CITALOPRAM HYDROBROMIDE 20 MG TAB PO SCH (08:40)
[2016-12-11] MEDS: CARVEDILOL 3.125 MG TAB PO SCH ×2 (08:40→21:15)
[2016-12-11] MEDS: SODIUM CHLORIDE 0.9% FLUSH 10 ML FLUSH IV FLUSH SCH ×2 (08:40→21:18)
[2016-12-11] MEDS: LISINOPRIL 10 MG TAB PO SCH ×2 (08:48→21:14)
[2016-12-11] MEDS ORDERED: IOHEXOL 350 MG/ML 50 ML BTL (for Cath Lab) OTHER ONE (09:25)
[2016-12-11] MEDS ORDERED: HEPARIN-NS/PF INJ 500 ML ONE ×2 (09:39→09:56)
[2016-12-11] MEDS ORDERED: MIDAZOLAM HCL 2 MG/2 ML VIAL ONE (09:39)
[2016-12-11] MEDS ORDERED: HEPARIN SODIUM - IV 10,000 UNITS/10 ML VIAL ONE (09:44)
[2016-12-11] MEDS ORDERED: VERAPAMIL HCL 5 MG/2 ML VIAL ONE (09:44)
--- NOTE | 2016-12-11 10:27 | CATHPROC ---
[facility] HIS Report Study Information Study Number Admission Scheduled Start Study Start 830-17 Dec 08 2016 4:22PM 12/11/2016 Dec 11 2016 8:46AM Study Type Left/Possible PCI Referring Institution Admit Source Facility Department 1 Emergency department [facility] - [facility] Physician and Clinical Staff Initial Marlon Anand Package Collector Anson RN, Radha Mcclellan,RT(R) (BS) Scrub Zeb Cramer RCIS(BS) Procedures Performed Procedure Location (Site) Vessel Name Coronary Angiograms LCA Left Coronary Coronary Angiograms RCA Right Coronary L Heart Cath LV Gram-hand inj. LV LV Ventricle Equipment Time Cloth Napping Supervisor Description Size Mfg Part Number Used/Scraped TRANSDUCER, TRUWAVE 08:52 FERGUSON LOVE * [id number] Used W/Arledia CONCEPT DRAPE, RADIAL FEMORAL FULL 08:52 * [id number] Used DEVELOPMENT BODY 08:52 [employer] PACK, CCL CUSTOM * [id number] Used 08:52 [employer] SUPPORT, ARTERIAL ADULT [id number] Used 08:52 APR WIRE, 3MMJ .035 180CM 180CM [id number] Used 08:52 NAMIC MANIFOLD, 4 PORT * [id number] Used 08:52 [employer] OMNIPAQUE, 350 MG, 100ML 100ML [id number] Used 08:52 [employer] BLANKET,WARM AIR CCL * [id number] Used BAND, RADIAL COMPRESSION TR 08:52 [employer] 29CM XX*[id number] Used LARGE SHEATH, FR6 TRANSRADIAL 08:52 [employer] FR 6 RM*[id number] Used SLENDER 10CM History: Current Medications Medication Dosage/Unit Route Frequency Last Date/Time Taken Statins (any) Beta Leonardo ASA History: Allergies Allergy Reaction Venlafaxine GI UPSET History: Risk Factors Family History of Hypertension Dyslipidemia Previous IN Previous Heart Failure Premature CAD Yes Yes Yes Yes No Prior Valve Prior PCI Prior PCIDate Prior CABG Surgery No Yes 12/11/2013 No Cerebrovascular Peripheral Artery Chronic Lung On Dialysis Diabetes Disease Disease Disease No No No No No History: Symptoms/Diagnosis Selection Items Chest pain History: Stress Tests Stress or Imaging Studies Performed Yes Standard Exercise Stress Test No Stress Echo No Stress Test SPECT Stress Test SPECT Result Stress Test SPECT Ischemia Risk/Extent Yes Positive Intermediate Stress Test CMR No Cardiac CTA Coronary Calcium Score No No History: Other Current Smoker Method Packs a Day Years Used Pack Years Yes Cigarettes 1 40 40 Labs Hgb (g/dl) Hct (%) WBC (l/cumm) Platelets (thousands) 12.00-18.00 37.00-55.00 4.80-10.80 140.00-450.00 14.2 43.1 7.7 152 Glucose (mg/dl) BUN (mg/dl) Creatinine (mg/dl) BUN:Creatinine (1:x) 60.00-110.00 8.00-20.00 0.10-9.00 10.00-20.00 93 17 0.8 21.3 Na (meq/l) K (meq/l) 138.00-146.00 3.80-5.10 143 3.5 INR (PTT:PT) 0.50-2.00 1 Troponin I (ng/ml) CPK-MB (ng/ML) 0.40-2.30 0.00-7.00 0.02 Not Drawn Medication Medication Total Dose (Bolus/Oral) Medication Total Dosage/Unit 1% XYLOCAINE 20 mL FENTANYL 50 mcg RADIAL COCKTAIL 3 mL (Bolus) VERSED 2 mg Medications (Bolus/Oral) Medication Time Given Dosage/Unit Administered By Reason VERSED 12/11/2016 10:01:51 AM 2 mg Paul Griggs RN 2 mg VERSED given in lab by Paul Griggs RN in Right Antecubital via Peripheral IV. FENTANYL 12/11/2016 10:01:58 AM 50 mcg Paul Griggs RN 50 mcg FENTANYL given in lab by Paul Griggs RN in Right Antecubital via Peripheral IV. 1% XYLOCAINE 12/11/2016 10:02:24 AM 20 mL Marlon Shaffer 20 mL 1% XYLOCAINE given in lab by Marlon Shaffer in Right Groin via Subcutaneous. Ntg 200mcg Verapamil 2.5mg Heparin RADIAL COCKTAIL 12/11/2016 10:03:47 AM 3 mL (Bolus) Edmund Marlon 2500U 3 mL (Bolus) RADIAL COCKTAIL given by Marlon Shaffer in Right Radial via Radial. Using [Solution N braxton]. Ordered by Marlon Shaffer. Reason: Ntg 200mcg Verapamil 2.5mg Heparin 2500U. Medication (Drip) Medication Time Given Dosage/Unit Concentration/Unit Diluent (ml) Solution IV Solutions 12/11/2016 9:25:32 AM 0 mL (IV) 500 NaCl .9 IV Solutions given in lab by Paul Griggs RN in Right Antecubital via Peripheral IV. Pump/Drip Flow = 20 ml/hr using NaCl .9. Initial Case Assessment Cardiovascular HR Rhythm NIBP Chest Pain 53 reg 156/79 0 Edema Present Skin color Skin None Normal Warm Dry Circulatory - Right Pulses Dorsalis Pedis Femoral Radial 2 2 2 Scale (0,1,2,3,4,d) Scale (0,1,2,3,4,d) Circulatory - Lower Extremities Color Lower Right Color Lower Left Normal Normal Neurological State Oriented to time-place- Alert Moves all extremities person Respiration - General SpO2 (%) 97 Chronological Log Time Study Chronological Log 9:25:12 Patient arrived via Bed. 9:25:13 Patient Name, D.O.B, / Armband Verified By R.N. 9:25:13 Consent signed by the physician and the patient and verified by the [facility] staff. 9:25:14 Pre-op and post- op instructions given; patient acknowledges understanding of instructions. 9:25:17 Verbal Stimulation=2 Physical Stimulation=2 Airway=2 Respiration=2 TOTAL=8. (0=absent, 1=li mited, 2=present) 9:25:21 Presedation assessment performed by [facility] RN. 9:25:23 Allens test performed on the right radial and ulnar artery. 9:25:26 Immediate Presedation assesment performed by physician. 9:25:27 Patient has been NPO for More than 6Hrs. 9:25:28 Skin Breakdown none per pt 9:25:30 Geoff Prominences Protected 9:25:31 A # 20 IV was noted in the Antecubital (right). Grade = 0 IV Solutions given in lab by Paul Griggs RN in Right Antecubital via Peripheral IV. Pump/Drip Flow = 20 ml/hr using 9:25:32 NaCl .9. 9:25:33 History and physical on the chart or being dictated. Assessment: Initial Case, HR=53 BPM, Rhythm=reg, FMGO=835/79 mmhg, Chest Pain=0, Edema=None, Co marie=Normal, Skin = Warm, Dry Right Pulses: Derian Ped=2, Femoral=2, Radial=2 9:25:36 Lower Right Extremities: Color=Normal Lower Left Extremities: Color=Normal Neurological: State=Alert, Ox3, ALVARADO Respiration: SpO2=97 % Vitals capture started with the following parameters, Patient=Adult, Interval=5 min, Initial Pr wkhbxd=893 mmHg, 9:30:48 Deflation Rate=5 mmHg 9:32:12 HR=53 bpm, LWSK=484/79 mmhg, SpO2=98.0 %, Pain=0, Sandro=10, Shelton=2 9:36:28 HR=55 bpm, RWHW=349/79 mmhg, SpO2=97.0 %, Pain=0, Sandro=10, Shelton=2 9:41:29 HR=56 bpm, HWNX=230/76 mmhg, SpO2=98.0 %, Pain=0, Sandro=10, Shelton=2 9:46:28 HR=55 bpm, ODPP=989/74 mmhg, SpO2=97.0 %, Resp=11 B/min, Pain=0, Sandro=10, Shelton=2 9:47:58 Right groin and right radial prepped with 2% chlorhexidine, and with a 3 min. waiting time. 9:49:08 Reference ECG taken 9:51:29 HR=91 bpm, KUOU=212/71 mmhg, SpO2=98.0 %, Resp=17 B/min, Pain=0, Snadro=10, Shelton=2 9:56:28 HR=52 bpm, KOND=613/77 mmhg, SpO2=97.0 %, Resp=8 B/min, Pain=0, Sandro=10, Shelton=2 9:58:41 Pressure channel 1 zeroed. Time Out. Correct patient, correct procedure,correct physician, power injector not loaded with contrast with surgical 10:01:10 team present. Time Out Concurred by , individual staff in procedure 10:01:27 HR=52 bpm, SGGW=149/76 mmhg, SpO2=98.0 %, Resp=0 B/min, Pain=0, Sandro=10, Shelton=2 10:01:46 Case Start 10:01:51 2 mg VERSED given in lab by Paul Griggs RN in Right Antecubital via Peripheral IV. 10:01:58 50 mcg FENTANYL given in lab by Paul Griggs RN in Right Antecubital via Peripheral IV. 10:02:24 20 mL 1% XYLOCAINE given in lab by Marlon Shaffer in Right Groin via Subcutaneous. 10:03:21 Access site was right Radial Artery. A SHEATH, FR6 TRANSRADIAL SLENDER 10CM FR 6 was advanced into the Radial (right) using the Perc utaneous 10:03:32 technique. 3 mL (Bolus) RADIAL COCKTAIL given by Marlon Shaffer in Right Radial via Radial. Using [Solu tion Name]. Ordered 10:03:47 by Marlon Shaffer. Reason: Ntg 200mcg Verapamil 2.5mg Heparin 2500U. A JR 4.0 INFINITI CATHETER FR 5 was advanced over a wire. OMNIPAQUE, 350 MG, 100ML 100ML was us ed for 10:04:10 injections. Recorded Pressure: LV, HR=61, Condition=Condition 1 10:06:04 (Left Ventricle) LV 164/8/18 10:06:09 Vitals capture stopped. 10:07:17 The RCA was injected and visualized at various angles. OMNIPAQUE, 350 MG, 100ML 100ML used . 10:07:52 The LV was manually injected with 8 cc's and visualized. OMNIPAQUE, 350 MG, 100ML 100ML use d. After removing the current catheter a JL 3.5 INFINITI CATHETER FR 5 was advanced over a WIRE, 3 MMJ .035 180CM 10:09:48 180CM. OMNIPAQUE, 350 MG, 100ML 100ML was used for injections. 10:10:31 The LCA was injected and visualized at various angles. OMNIPAQUE, 350 MG, 100ML 100ML used . Recorded Pressure: LV, Ao, HR=59, Condition=Condition 1 10:12:13 (Left Ventricle) LV 159/8/16, (Aorta) Ao 173/84/118 Vitals capture started with the following parameters, Patient=Adult, Interval=5 min, Initial Pr tksjuf=822 mmHg, 10:12:14 Deflation Rate=5 mmHg Recorded Pressure: Ao, HR=59, Condition=Condition 1 10:12:25 (Aorta) Ao 159/77/108 10:12:51 HR=59 bpm, KLEZ=986/75 mmhg, SpO2=92.0 %, Resp=17 B/min, Pain=0, Sandro=10, Shelton=2 10:16:47 Catheter was removed 10:17:54 HR=56 bpm, MBCD=074/74 mmhg, SpO2=95.0 %, Resp=29 B/min, Pain=0, Sandro=10, Shelton=2 10:18:18 Case End 10:18:22 No case complications noted. 10:18:24 Cine recording checked. 10:18:26 Bedside Report will be given. 10:18:28 Contrast Scanned 10:18:33 A Left Heart Cath was performed. 10:18:38 Radial Compression Device Used. 10:20:02 [facility] called. Spoke to Bel. 10:22:51 GOTF=424/85 mmhg, Pain=0, Sandro=10, Shelton=2 10:29:20 Patient moved to [facility] End Study - Contrast Media Used In Study Contrast Total Opened (mL) Total Used (mL) Total Wasted (mL) Omnipaque 50 50 0 End Study - Maximum Contrast Load Max Contrast Load (mL) 464.5 End Study - Radiation Exposure Fluoro Time (minutes) 3.7 End Study - Sheaths Sheaths Pulled By Sheath Hold Time (min) Zeb Cramer End Study - Patient Disposition Complications Transferred To Interventional Outcome No Telemetry Bed No attempt made
[2016-12-11] MEDS ORDERED: MISC INFORMATION XX ONE (10:30)
--- NOTE | 2016-12-11 11:38 | MA ---
cc: VALENTINA NICOLE DATE OF 1955 DATE OF PROCEDURE December 11, 2016 PROCEDURE PERFORMED 1. Left heart catheterization. 2. Selective right and left angiography. 3. Left ventriculogram. INDICATION Elevated troponins/atypical chest pain. PROCEDURE DESCRIPTION Consent signed. The patient was brought into the cardiac laborer wharf in a fasting state. The right wrist was prepped and draped in sterile fashion. Using 1% lidocaine for local anesthesia and a micropuncture kit, a 6-Wolof sheath was inserted into the right radial artery, antispasmodic cocktail given. Then selective right and left coronary angiography was performed with a JR-4 and a JL -3.5 diagnostic catheters. Angiography was taken in multiple views. The JR-4 was introduced to the LAD over a wire, followed by pressure recordings, left ventriculogram and pullback. The patient tolerated the procedure well without complications. ESTIMATED BLOOD LOSS Less than 30 cc. TOTAL CONTRAST USED 75 cc. CLOSURE The right wrist access site was closed with a TR band. RESULTS LEFT VENTRICLE The left ventricular pressure was 159/80 with an LVEDP of 16mmHg. The aortic pressure was 173/84 with a mean of 118. Left ventriculogram revealed global hypokinesis with an estimated ejection fraction of 30%. There was no gradient upon pullback from the left ventricle to the aorta. ANGIOGRAPHY 1. The right coronary artery has an anterior takeoff; it is a dominant vessel, has minimal luminal irregularities throughout and BRANDAN-3 flow. The PDA is patent with nonobstructive coronary artery disease. 2. Left main is patent with nonobstructive coronary artery disease. 3. LAD. It has minimal luminal irregularities throughout and calcifications with a 20% lesion proximally and in the mid-segment. The vessel does not go to the apex. There are also two diagonals which are small and patent. 4. The left circumflex artery has nonobstructive coronary artery disease, mainly is composed of a small AV groove branch which is patent and then a prominent high obtuse marginal branch which wraps around to the apex. This OM branch is giving several other side branches which are of prominent size which are patent with nonobstructive coronary artery disease. There is a patent stent. CONCLUSION 1. Severe LV systolic function with estimated ejection fraction of 30%. This most likely represents a nonischemic cardiomyopathy. Given that the patient only had 1 stent in the setting of STEMI years ago, not explaining the severe global hypokinesis. 2. Single vessel CAD a patent stent in the OM1. RECOMMENDATIONS 1. Continue aggressive medical management for secondary prevention of coronary artery disease. 2. Optimize medications for chronic LV systolic dysfunction. 3. Continue the correct RORY inhibitors, statins as well as aspirin. 4. The patient should be scheduled for an AICD, however, we will relay to Dr. Camacho who is her primary survey director for that positioned. In the meantime she should get a LifeVest upon discharge. MD LISET Raymundo/VERONICA /10:28 AM /11:27 AM MTDD
[2016-12-11] MEDS ORDERED: BACITRACIN OINT 0.9 GM PKT ONE (14:03)
[2016-12-11] MEDS: ACETAMINOPHEN 325 MG TAB PO PRN (14:16)
--- NOTE | 2016-12-11 14:20 | HHI.PR ---
Subjective Remarks Poor EF during heart cath evaluation. No need for stenting. Etiology of new cardiomyopathy exceeds that which would be expected by prior [place]. A life vest is pending and will be need to be placed prior to discharge. Objective Vital Signs Date Time Temp Pulse Resp B/P Pulse Ox O2 Delivery O2 Flow Rate FiO2 12/11/16 12:00 98.0 56 18 143/71 96 12/11/16 12:00 56 12/11/16 11:00 54 12/11/16 09:00 54 12/11/16 08:30 97.8 51 18 150/75 12/11/16 08:00 54 12/11/16 07:30 97.8 51 18 150/75 95 12/11/16 07:00 50 12/11/16 06:00 50 12/11/16 05:00 52 12/11/16 04:00 49 12/11/16 03:52 98.4 52 18 147/82 97 12/11/16 03:52 Room Air 12/11/16 03:00 52 12/11/16 02:00 50 12/11/16 01:00 56 12/11/16 00:00 98.3 53 18 119/60 97 12/11/16 00:00 53 12/11/16 00:00 Room Air 12/10/16 23:00 55 12/10/16 22:00 54 12/10/16 21:00 56 12/10/16 20:00 58 12/10/16 20:00 Room Air 12/10/16 20:00 98.0 58 20 127/62 96 12/10/16 18:00 52 12/10/16 17:00 50 12/10/16 16:00 52 12/10/16 15:00 98.1 54 18 131/63 97 12/10/16 15:00 59 I/O 12/10/16 12/10/16 12/10/16 12/11/16 12/11/16 12/11/16 07:00 15:00 23:00 07:00 15:00 23:00 Intake Total 490 ml 420 ml 430 ml 360 ml Output Total 250 ml 700 ml Balance 490 ml 170 ml -270 ml 360 ml Intake Oral 480 ml 420 ml 420 ml 360 ml IV Total 10 ml 10 ml Output Urine Total 250 ml 700 ml # Voids 3 2 4 # Bowel Movements 0 0 1 1 Result Diagram: 12/11/16 0515 12/11/16 0515 Objective Remarks GENERAL: NAD, A&Ox3 SKIN: Warm and dry. HEAD: Normocephalic. EYES: No scleral icterus. No injection or drainage. NECK: Supple, trachea midline. No JVD or lymphadenopathy. CARDIOVASCULAR: Regular rate and rhythm without murmurs, gallops, or rubs. RESPIRATORY: Breath sounds equal bilaterally. No accessory muscle use. GASTROINTESTINAL: Abdomen soft, non-tender, nondistended. MUSCULOSKELETAL: No cyanosis, or edema. BACK: Nontender without obvious deformity. No CVA tenderness. A/P Problem List: (1) Chest pain in adult ICD Code: R07.9 Assessment & Plan: Cardiology following Signs of reversible disease Cardiac cath in AM No change to present management (2) Hypertension ICD Code: I10 Assessment & Plan: BP stable Follow BP Continue current treatments (3) Hyperlipidemia ICD Code: E78.5 Assessment & Plan: Statin Follow FLP as an outpatient No changes today (4) Coronary artery disease ICD Code: I25.10 Assessment & Plan: Cardiac cath show no stenotic disease needing stenting Medical management to continue (5) Tobacco abuse ICD Code: Z72.0 Assessment & Plan: Counseled to quit (6) Cardiomyopathy ICD Code: I42.9 Assessment & Plan: New finding May be acute EF at 30% Life Vest ordered Discharge Planning Discharge with medical management after placement of life vest completed. Problem Qualifiers (1) Hypertension: Qualified Code: I15.9 - Secondary hypertension (2) Hyperlipidemia: Qualified Code: E78.5 - Hyperlipidemia, unspecified hyperlipidemia type (3) Coronary artery disease: Qualified Code: I25.10 - Coronary artery disease due to calcified coronary lesion Rolando Whitfield MD December 11, 2016 2:20 pm
[2016-12-11] MEDS: ATORVASTATIN 40 MG TAB PO SCH (21:14)
[2016-12-11] MEDS: clonazePAM 1 MG TAB PO PRN (22:56)
[2016-12-12] VITALS (21 sets, daily range): BP systolic 119–151; BP diastolic 51–76; PULSE 46–62; RESP 16–20; TEMP 97.6–98.3; O2SAT 97–100
[2016-12-12 06:53] LABS: HEMATOCRIT 41.4 % (35.0-46.0); MEAN CELL VOLUME 92.9 FL (80.0-100.0); MEAN CORPUSCULAR HGB CONC 33.3 % (32.0-36.0); PLATELET COUNT 145 TH/MM3 (150-450); RED BLOOD COUNT 4.45 MIL/MM3 (4.00-5.30); REVIEW FLAG FINAL; WHITE BLOOD COUNT 6.8 TH/MM3 (4.0-11.0)
[2016-12-12 07:18] LABS: BICARBONATE 29.5 MEQ/L (21.0-32.0); POTASSIUM 3.6 MEQ/L (3.5-5.1)
[2016-12-12] MEDS: DOCUSATE SODIUM 100 MG CAP PO SCH (09:25)
[2016-12-12] MEDS: ASPIRIN EC 81 MG TABEC PO SCH (09:25)
[2016-12-12] MEDS: SODIUM CHLORIDE 0.9% FLUSH 10 ML FLUSH IV FLUSH SCH (09:25)
[2016-12-12] MEDS: CITALOPRAM HYDROBROMIDE 20 MG TAB PO SCH (09:25)
[2016-12-12] MEDS: LISINOPRIL 10 MG TAB PO SCH (09:25)
[2016-12-12] MEDS: CARVEDILOL 3.125 MG TAB PO SCH (09:25)
[2016-12-12] MEDS ORDERED: [UNRECOGNIZED DRUG - OTHER] (10:35)
--- NOTE | 2016-12-13 14:04 | HHI.DS ---
Discharge Summary Admission Date Dec 08, 2016 at 4:22 pm Discharge Date: December 12, 2016 Admitting Diagnosis chest pain (1) Chest pain in adult ICD Code: R07.9 Diagnosis: Principal (2) Coronary artery disease ICD Code: I25.10 Diagnosis: Secondary (3) Hypertension ICD Code: I10 Diagnosis: Secondary (4) Hyperlipidemia ICD Code: E78.5 Diagnosis: Secondary (5) History of coronary artery stent placement ICD Code: Z95.5 Diagnosis: Secondary (6) Tobacco abuse ICD Code: Z72.0 Diagnosis: Secondary Procedures heart cath Brief History - From Admission 61-year-old female with known history of hypertension, hyperlipidemia , coronary disease, cardiomyopathy with ejection fraction 2530 percent, coronary artery disease status post stenting of OM, tobacco use, anxiety and depression who presented to hospital because of chest discomfort. Patient states that she is had chest discomfort for the last 2 weeks. She states it is located on the left side of her chest, left rib cage area and into her left back. She states that happens approximate 45 times a day lasting for a couple minutes at a time. The pain can happen at rest and exertion. It is worsened whenever she is walking the dog and holding the leash on that side. It is reproducible on palpation. She denies any alleviating factors that resolved on its own. She denies any nausea, vomiting, diaphoresis, shortness of breath, dyspnea, lightheadedness, dizziness. Because she had a previous heart attack 3 years ago she came to the hospital for evaluation. She is followed by her primary medical doctor on a regular basis. She does go to Dr. Camacho on a yearly basis. Plans for echocardiogram to be done in May of this year. Patient denies any recent stress testing. CBC/BMP: 12/12/16 0516 12/12/16 0516 Significant Findings Laboratory Tests Test 12/11/16 12/12/16 05:15 05:16 Estimat Glomerular Filtration 66 ML/MIN (>89) 67 ML/MIN (>89) Rate Platelet Count 145 TH/MM3 (150-450) Imaging Last Impressions Myocardial Perfusion Scan Nuc Med 12/09/16 0000 Signed Impressions: Service Date/Time: Friday, December 09, 2016 12:39 - CONCLUSION: 1. Global hypokinesis with ejection fraction of 30%%. 2. Reversible perfusion defect inferior wall and fixed anterior wall defect. RISK CATEGORY: High (>3%% Annual Mortality Rate) Andrew Lyon MD Chest X-Ray 12/08/16 1456 Signed Impressions: Service Date/Time: Thursday, December 08, 2016 15:08 - CONCLUSION: No acute disease. Jim Easton MD FACR PE at Discharge GENERAL: NAD, A&Ox3 SKIN: Warm and dry. HEAD: Normocephalic. EYES: No scleral icterus. No injection or drainage. NECK: Supple, trachea midline. No JVD or lymphadenopathy. CARDIOVASCULAR: Regular rate and rhythm without murmurs, gallops, or rubs. RESPIRATORY: Breath sounds equal bilaterally. No accessory muscle use. GASTROINTESTINAL: Abdomen soft, non-tender, nondistended. MUSCULOSKELETAL: No cyanosis, or edema. BACK: Nontender without obvious deformity. No CVA tenderness. Pt update on day of discharge Stable for discharge after life vest placed. Hospital Course Mrs. Cook was admitted for a chest pain work up and has a history of old [place]. She had a heart cath which showed an EF of 30% which was a significant decline from prior echo. Cardiomyopathy with progressive CHF may be present and a life vest was ordered. She has not had further chest pain problems during her stay. Life vest was placed and she was medically cleared and discharged to home with outpatient follow up with cardiology. Pt Condition on Discharge: Stable Discharge Disposition: Discharge Home Discharge Time: > 30 minutes Discharge Instructions DIET: Follow Instructions for: Heart Healthy Diet Activities you can perform: Regular-No Restrictions Follow up Referrals: Cardiology - 1 Week with [facility] PCP Follow-up - 2 Weeks New Medications: ([life vest]) #1 Continued Medications: Acetaminophen (Acetaminophen Extra Strength) 500 Mg Tab 500 MG PO Q6H PRN PAIN SCALE 1 TO 4 #20 Ref 0 TAB Aspirin (Aspirin) 81 Mg Tabdr 81 MG PO DAILY TAB Atorvastatin (Atorvastatin) 40 Mg Tab 40 MG PO HS Cholesterol Management #30 Ref 0 TAB Carvedilol (Carvedilol) 6.25 Mg Tab 6.25 MG PO BID #60 Ref 0 TAB Cholecalciferol (Vitamin D3) 1,000 Unit Cap 1000 UNITS PO DAILY Nutritional Supplement #1 Ref 0 BOTTLE Citalopram (Citalopram) 20 Mg Tab 20 MG PO DAILY Control Depression #30 Ref 0 TAB Clonazepam (Clonazepam) 2 Mg Tab 2 MG PO TID #90 Ref 0 TAB Cyanocobalamin (Vitamin B12) 100 Mcg Tab 1000 MCG PO DAILY #1 BOTTLE Docusate Sodium (Stool Softener) 100 Mg Cap 1 CAPLET PO DAILY PRN CONSTIPATION Lisinopril (Lisinopril) 10 Mg Tab 10 MG PO BID #30 Ref 0 TAB Nitroglycerin SL (Nitrostat SL) 0.4 Mg Subl 0.4 MG SL DIRECTED 1 tablet under the tongue as needed for chest pain. Repeat every 5 minutes for a total of 3 DOSES or call 911 if NO relief. PRN CHEST PAIN #100 Ref 0 TAB.SL [place]-3 Fatty Acids (Fish Oil) 500 Mg Cap 300 MG PO TID Rolando Whitfield MD December 13, 2016 2:04 pm
== END 2016-12-12 19:20 | disposition home or self-care (01) ==
LOC: PHED 14:10 → PHEDA 16:22 → PH3A 18:34 → HCIS 12-09 17:23
PROVIDERS: ADMIT Hospitalist; ATTEND Hospitalist
DX: R07.9 Chest pain, unspecified (principal); I25.10 Atherosclerotic heart disease of native coronary artery without angina pectoris; I25.84 Coronary atherosclerosis due to calcified coronary lesion; I15.9 Secondary hypertension, unspecified; E78.5 Hyperlipidemia, unspecified; I42.9 Cardiomyopathy, unspecified; I47.2 Ventricular tachycardia; M94.0 Chondrocostal junction syndrome [Tietze]; F41.8 Other specified anxiety disorders; I25.2 Old myocardial infarction; F17.200 Nicotine dependence, unspecified, uncomplicated; Z95.5 Presence of coronary angioplasty implant and graft
CPT/HCPCS: 71010; 78452; 80048; 82550; 84484; 85025; 85027; 85610; 85730; 93005; 93017; 93458; 99285; A9502; C1769; C1893; G0378; J1644; J2250; J2785; J3010; Q9967

== ENCOUNTER 2017-01-23 06:01 | Day surgery (SDC) | payer OTHER ==
[~2017-01-23] VITALS: Ht 172.7 cm; Wt 72.0 kg
[2017-01-23] VITALS (10 sets, daily range): BP systolic 127–142; BP diastolic 59–65; PULSE 48–62; RESP 18–20; TEMP 97.8–98.3; O2SAT 95–97
[~2017-01-23 06:01] MED LIST changes: +[UNRECOGNIZED DRUG - OTHER]
[2017-01-23] MEDS ORDERED: INSULIN HUMAN REGULAR 1,000 UNITS/10 ML VIAL SQ PRN (06:30)
[2017-01-23] MEDS ORDERED: CHLORHEXIDINE GLUCONATE 2 % 1 PACK (2 CLOTHS) TOPICAL SCH (06:30)
[2017-01-23] MEDS ORDERED: VANCOMYCIN 1000 MG/NS 250 ML IV SCH ×2 (06:30)
[2017-01-23] MEDS ORDERED: POVIDONE IODINE 5% (ANTISEPSIS KIT) 4 APPLICATIONS EACH NARE PRN (06:30)
[2017-01-23] MEDS ORDERED: MUPIROCIN 2% OINT 1 APPLIC/GM SYR NASAL SCH (06:30)
[2017-01-23] MEDS ORDERED: NS 1000 ML IV SCH (06:30)
[2017-01-23] MEDS ORDERED: LACTATED RINGER'S 1000 ML IV PRN (06:30)
[2017-01-23] MEDS ORDERED: METOPROLOL TARTRATE 25 MG TAB PO PRN (06:30)
[2017-01-23] MEDS ORDERED: ceFAZolin 2 GM PREMIX 50 ML IV SCH (06:30)
[2017-01-23] MEDS ORDERED: POVIDONE IODINE 5% (ANTISEPSIS KIT) 4 APPLICATIONS EACH NARE SCH (06:30)
[2017-01-23] MEDS ORDERED: CHLORHEXIDINE GLUCONATE 2 % 1 PACK (2 CLOTHS) TOPICAL PRN (06:30)
[2017-01-23] MEDS ORDERED: SODIUM CHLORID 0.9% 500 ML IV PRN (06:30)
[2017-01-23 06:49] LABS: AUTOMATED NEUTROPHIL # 3.5 TH/MM3 (1.8-7.7); BASOPHIL % 0.6 % (0.0-2.0); EOSINOPHIL # 0.1 TH/MM3 (0-0.4); EOSINOPHIL % 2.1 % (0.0-4.0); HEMATOCRIT 41.4 % (35.0-46.0); HEMO FLAGS DIFF FINAL; LYMPH % 37.1 % (9.0-44.0); LYMPHOCYTE # 2.6 TH/MM3 (1.0-4.8); MEAN CELL VOLUME 92.4 FL (80.0-100.0); MEAN CORPUSCULAR HEMOGLOBIN 30.7 PG (27.0-34.0); MEAN CORPUSCULAR HGB CONC 33.2 % (32.0-36.0); MONO % 9.6 % (0.0-8.0); NEUT % 50.6 % (16.0-70.0); PLATELET COUNT 183 TH/MM3 (150-450); RED BLOOD COUNT 4.48 MIL/MM3 (4.00-5.30); RED CELL DISTRIBUTION WIDTH 14.3 % (11.6-17.2); WHITE BLOOD COUNT 6.9 TH/MM3 (4.0-11.0)
[2017-01-23] MEDS ORDERED: LACTCAP8 PO (06:49)
[2017-01-23] MEDS ORDERED: MAPA500T13 PO (06:49)
[2017-01-23] MEDS ORDERED: ASPI81CH37 CHEW (06:49)
[2017-01-23 06:58] LABS: APTT (PATIENT) 25.3 SEC (24.3-30.1); PROTHROMBIN TIME - PATIENT 10.5 SEC (9.8-11.6)
[2017-01-23 07:07] LABS: BICARBONATE 30.5 MEQ/L (21.0-32.0); POTASSIUM 3.8 MEQ/L (3.5-5.1)
[2017-01-23] MEDS ORDERED: LIDOCAINE HCL 2% 50 ML VIAL ONE (09:00)
[2017-01-23] MEDS ORDERED: VANCOMYCIN 500 MG VIAL ONE (09:00)
--- NOTE | 2017-01-23 09:05 | CATHPROC ---
[employer] HIS Report Study Information Study Number Admission Scheduled Start Study Start [id number] Jan 23 2017 6:01AM 01/23/2017 Jan 23 2017 6:53AM [facility] Cardiac Pacer/ICD Admit Source Facility Department Other [facility] - Education Liaison Physician and Clinical Staff Initial Malena Moy Eligibility Specialist Aranza Maloney,SUE Other Anesthesia, SUPERVISOR PRODUCTION DEPARTMENT Recorder Cate Weaver,ADRIAN Recorder Yanet Arellano RN Scrub Josephine Lees,RT(R) TECH2 Equipment Time [place] Description Size Mfg Part Number Used/Scraped [id number] 08:10 [employer] CATHETER, JSN, QUAD FR 5 Used *[id number] 08:10 [employer] MED[employer] CATHETER, JSN, QUAD FR 5 Used *[id number] 08:10 [employer] MEDICAL CATHETER, JSN, QUAD FR 5 Used *[id number] 08:10 [employer] MEDICAL CATHETER, JSN, QUAD FR 5 Used *[id number] 08:10 [employer] MED[employer] SHEATH, EPS, FR5 FAST CATH FR 5 Used *[id number] 08:10 [employer] SHEATH, EPS, FR5 FAST CATH FR 5 Used *[id number] [id number] 08:10 [employer] SHEATH, EPS, FR5 FAST CATH FR 5 Used *[id number] 08:10 [employer] SHEATH, EPS, FR6 FAST CATH FR 6 [id number] Used Labs Hgb (g/dl) Hct (%) RBC (MIL/MM3) WBC (l/cumm) Platelets (thousands) 12.00-18.00 37.00-55.00 4.80-6.20 4.80-10.80 140.00-450.00 12.0 41 4.4 6.9 183 Glucose (mg/dl) BUN (mg/dl) Creatinine (mg/dl) BUN:Creatinine (1:x) 60.00-110.00 8.00-20.00 0.10-9.00 10.00-20.00 95 15 0.8 18.8 Na (meq/l) K (meq/l) 138.00-146.00 3.80-5.10 143 3.8 INR (PTT:PT) 0.50-2.00 1 Medication Medication Total Dose (Bolus/Oral) Medication Total Dosage/Unit 1% XYLOCAINE 20 mL Medications (Bolus/Oral) Medication Time Given Dosage/Unit Administered By Reason 1% XYLOCAINE 01/23/2017 8:43:03 AM 20 mL Malena Green 20 mL 1% XYLOCAINE given in lab by Malena Green in Right Groin via Subcutaneous. Ordered by Dilip Green. Medication (Drip) Medication Time Given Dosage/Unit Concentration/Unit Diluent (ml) Solution ANCEF 01/23/2017 8:18:09 AM 2 g 2 g ANCEF given in lab by Malena Green in Right Antecubital via Peripheral IV. Ordered by Mina Green. VANCOMYCIN DRIP 01/23/2017 8:18:50 AM 1 g 1 g VANCOMYCIN DRIP given in lab by Malena Green in Right Antecubital via Peripheral IV. Ordered by Malena Green. Initial Case Assessment Cardiovascular HR NIBP Chest Pain 51 140/67 0 Edema Present Skin color Skin None Normal Warm Dry Circulatory - Right Pulses Dorsalis Pedis Radial 2 1 Scale (0,1,2,3,4,d) Circulatory - Left Pulses Dorsalis Pedis Radial 2 1 Scale (0,1,2,3,4,d) Circulatory - Lower Extremities Color Lower Right Color Lower Left Normal Normal Neurological State Oriented to time-place- Alert Moves all extremities person Respiration - General Respiration Rate SpO2 (%) (B/min) 16 95 Chronological Log Time Study Chronological Log 8:04:36 Patient arrived via Bed. 8:04:37 Patient Name, D.O.B, / Armband Verified By R.N. 8:15:19 Anesthesia at bedside. Assumes care of patient. DAISY Phillips 8:18:09 2 g ANCEF given in lab by Malena Green in Right Antecubital via Peripheral IV. Ordered by Malena rGeen. 8:18:50 1 g VANCOMYCIN DRIP given in lab by Malena Green in Right Antecubital via Peripheral IV. O rdered by Malena Green. 8:24:57 Pre-op and post- op instructions given; patient acknowledges understanding of instructions. 8:25:00 Consent signed by the physician and the patient and verified by the Education Liaison staff. 8:25:04 Verbal Stimulation=2 Physical Stimulation=2 Airway=2 Respiration=2 TOTAL=2. (0=absent, 1=li mited, 2=present) 8:25:29 Presedation assessment performed by Education Liaison RN. 8:27:00 Patient has been NPO for More than 6Hrs. 8:27:02 Skin Breakdown-generalized scabs throughout b/l legs 8:27:19 Patient Warmer Placed on the Table. 8:27:20 Disposable Defibrillator Pads Placed On Patient. 8:27:21 Geoff Prominences Protected 8::27 A # 20 IV was noted in the Antecubital (left). Grade = 0 8:27:28 A # 20 IV was noted in the Antecubital (right). Grade = 0 8:27:29 History and physical on the chart or being dictated. Assessment: Initial Case, HR=51 BPM, NOQE=175/67 mmhg, Chest Pain=0, Edema=None, Color=Normal, S kin = Warm, Dry Right Pulses: Derian Ped=2, Radial=1 Left Pulses: Derian Ped=2, Radial=1 8:27:31 Lower Right Extremities: Color=Normal Lower Left Extremities: Color=Normal Neurological: State=Alert, Ox3, ALVARADO Respiration: Resp=16 B/min, SpO2=95 % 8:27:33 Table restraints applied according to hospital policy 8:27:41 Bilateral groins prepped with 2% chlorhexidine, and with a 3 min. waiting time. 8:33:17 MD paged 8:34:39 MD responded 8:38:18 MD arrived. Time Out. Correct patient, procedure, procedure equipment, site and side verified with physician present. Time 8:42:45 concurred by MD, individual staff and SUPERVISOR PRODUCTION DEPARTMENT. Time Out #2 - Consents verified, patient in correct position, all results are labled and display ed, safety precautions 8:42:47 taken, antibiotics administered. Time out concurred by MD, individual staff and SUPERVISOR PRODUCTION DEPARTMENT in procedur e 8:42:53 Reference ECG taken 8:42:59 Case Start 8:43:03 20 mL 1% XYLOCAINE given in lab by Malena Green in Right Groin via Subcutaneous. Ordered by Malena Green. 8:43:13 A SHEATH, EPS, FR5 FAST CATH FR 5 was advanced into the Fem Vein (right) using the Modified Seldinger technique. 8:44:05 A SHEATH, EPS, FR5 FAST CATH FR 5 was advanced into the Fem Vein (right) using the Modified Seldinger technique. 8:44:09 A SHEATH, EPS, FR5 FAST CATH FR 5 was advanced into the Fem Vein (right) using the Modified Seldinger technique. 8:44:51 A SHEATH, EPS, FR6 FAST CATH FR 6 was advanced into the Fem Vein (right) using the Modified Seldinger technique. A CATHETER, JSN, QUAD FR 5 was advanced vis Fem Vein (right) and placed in the CS. Placement was visually 8:46:12 confirmed under fluoroscopy. A CATHETER, JSN, QUAD FR 5 was advanced vis Fem Vein (right) and placed in the HIS. Placement wa s visually 8:46:29 confirmed under fluoroscopy. A CATHETER, JSN, QUAD FR 5 was advanced vis Fem Vein (right) and placed in the RVA. Placement wa s visually 8:46:35 confirmed under fluoroscopy. A CATHETER, JSN, QUAD FR 5 was advanced vis Fem Vein (right) and placed in the HRA. Placement wa s visually 8:46:43 confirmed under fluoroscopy. 8:49:17 EPS in progress. 9:01:24 EPS complete. 9:01:54 Catheter(s) removed without difficulty by H.H. 9:02:16 Sheath(s) left in place, will be removed in Holding Area. 9:02:53 Case End 9:03:00 No case complications noted. 9:03:02 Cine recording checked. 9:03:28 Initial procedure has been completed. Beginning additional procedure. End Study - Contrast Media Used In Study Contrast Total Opened (mL) Total Used (mL) Total Wasted (mL) Unspecified 0 0 0 End Study - Maximum Contrast Load Max Contrast Load (mL) 450.0 End Study - Radiation Exposure Fluoro Time (minutes) 0.8 End Study - Patient Disposition Complications Transferred To No Education Liaison Holding
--- NOTE | 2017-01-23 10:17 | CATHPROC ---
[employer] HIS Report Study Information Study Number Scheduled Start Study Start [id number] 01/23/2017 Jan 23 2017 9:11AM Referring Institution Admit Source Facility Department 1 Other [facility] - Pelt Inspector Physician and Clinical Staff Initial Malena Moy Stucco Worker Josephine Lees,RT(R) TECH2 Other Anesthesia, TRANSIT WORKER Recorder Cate Weaver,RN Recorder Yanet Arellano,ADRIAN Scrub Aranza Maloney,SALES REPRESENTATIVE [employer]IR[employer]PAREL Procedures Performed Procedure Lead Insertion Equipment Time Coffee Blender Description Size Mfg Part Number Used/Scraped DEFIBRILLATOR, IMPERIA 7 VR-T 10:04 BIOTRONIK [id number] Used DX MRI LEAD, LINOX SMART S DX 65/15 09:55 BIOTRONIK * [id number] Used (BULK) DERMABOND, ADHESIVE SKIN [id number] 09:57 CORDIS/PACER * Used GLUE MINI *[id number] TP-1103 09:57 MEDLINE INDUSTRIES SUTURE, STRIP PLUS 1/2" * Used *[id number] 09:57 MEDLINE PACER BAKER, LIMB * 2530 *[id number] Used [id number] 09:57 MEDLINE PACER PACK, PACER CUSTOM * Used *[id number] 09:34 [employer] PACER SAFE SHEATH, FR8, 13CM FR 8 [id number] Used 09:36 Needle Sponge Count 1 1 Used 09:40 Needle Sponge Count 1 111 Used 09:40 Needle Sponge Count 10 10 Used 09:39 Needle Sponge Count 2 2 Used SUTURE, 0 ETHIBOND [CT1] (CX21D), 8pk SUTURE, 2-0 VICRYL [CT1] ([id number]) SUTURE, 2-0 VICRYL [CT1] ([id number]) [id number] 09:57 [place] [employer],WARM AIR CCL * Used *[id number] [facility] PAD, ELECTROSURGICAL 09:57 * [id number] *[id number] Used SURGICAL GROUNDING ORANGE [id number] 09:57 [employer] SHENA. ELECTRODE, PRO-PADZ BIPHASIC * Used *[id number] Equipment Model, Serial, Lot Number and Expiration Data Description Model Number Serial Number Lot Number Expiration Date DEFIBRILLATOR, IMPERIA 7 VR-T [id number] 10-10-2017 DX MRI LEAD, LINOX SMART S DX 65/15 [id number] 10-10-2017 (BULK) Medication Medication Total Dose (Bolus/Oral) Medication Total Dosage/Unit 2% XYLOCAINE 50 mL Medications (Bolus/Oral) Medication Time Given Dosage/Unit Administered By Reason 2% XYLOCAINE 01/23/2017 9:50:59 AM 50 mL Malena Green 50 mL 2% XYLOCAINE given in lab by Malena Green in Left upper chest via Subcutaneous. Ordered by Malena Aleman. Final Case Assessment Cardiovascular HR Rhythm NIBP Chest Pain 52 sr 116/60 0 Edema Present Skin color Skin None Normal Warm Dry Circulatory - Lower Extremities Color Lower Right Color Lower Left Normal Normal Neurological State Oriented to time-place- Alert Moves all extremities person Respiration - General Respiration Rate SpO2 (%) O2 (lpm) (B/min) 16 99 6 Chronological Log Time Study Chronological Log 9:03:00 Initial procedure has been completed. Beginning additional procedure. 9:03:17 Anesthesia remains bedside. Assuming care of patient. 9:03:58 2% CHLORHEXIDINE GLUCONATE WASH AND NASAL SWIPE DONE PRIOR TO PROCEDURE. 9:04:06 NOTE: This patient is undergoing an additional procedure while still in the Cardiac Cath La b. 9:14:18 Bovie ground pad applied to: Right thigh. 9:15:11 Upper Chest Prepped Times Two. 9:18:03 Sterile dressing applied to Right Groin. 9:27:06 Reference ECG taken First Sponge And Instrument Count Done by Aranza Maloney RCIS. 9:34:47 Hypo's: 2, Sponges: 10, Bovie/scratch: 1 Verified by WU, RN Sutures: 10, Blades: 1, Instruments: 26, Syveck Patches: ~SYVECK PATCH~ 9:41:54 paged 9:47:19 MD arrived. Time Out. Correct patient, procedure, procedure equipment, site and side verified with physicia n present. Time 9:49:43 concurred by MD, individual staff and TRANSIT WORKER. Time Out #2 - Consents verified, patient in correct position, all results are labled and displa yed, safety precautions 9:49:48 taken, antibiotics administered. Time out concurred by , individual staff and TRANSIT WORKER in procedu re 9:49:59 Case Start 9:50:59 50 mL 2% XYLOCAINE given in lab by Malena Green in Left upper chest via Subcutaneous. Orde red by Malena Green. 9:52:03 Surgical Incision Made. 9:52:22 Vascular access was obtained in the Subclav. Vein (Lft. 9:52:29 Wire inserted 9:53:36 A SAFE SHEATH, FR8, 13CM FR 8 was advanced into the Subclav. Vein (Lft using the Modified S eldinger technique. 9:54:00 A LEAD, LINOX SMART S DX 65/15 (BULK) * was inserted and positioned in the RV. 9:55:41 Lead placement verified under fluoroscopy 9:57:57 The RV lead impedance and threshold being tested. 9:58:19 The RV lead was sutured to the fascia. 10:00:17 Pocket flushed with antibiotic solution 10:04:05 A DEFIBRILLATOR, IMPERIA 7 VR-T DX MRI was connected and placed in the pocket. Second Sponge And Instrument Count Done by Aranza Maloney RCIS. 10:04:35 Hypo's: 2, Sponges: 10, Bovie/scratch: 1. Verified with HH. Sutures: 10, Blades: 1, Instruments: 26, Syveck Patches: ~SYVECK PATCH~ 10:05:01 The pocket was closed. 10:07:07 A two Joul DFT sync was performed. 10:07:51 The DFT was Success at 20 Joules, 61 Ohms lead impedance and 4.1 ms charge time. final Sponge And Instrument Count Done by Aranza Maloney RCIS. 10:09:17 Hypo's: 2, Sponges: 10, Bovie/scratch: 1 verifed by HH Sutures: 10, Blades: 1, Instruments: ~INSTRU~, Syveck Patches: ~SYVECK PATCH~ 10:10:26 A sling will placed on the affected arm. 10:10:35 DOCU called. Spoke to ADRIAN Wolf. 10:12:12 Steri-strips and a sterile dressing applied to site. Assessment: Final Case, HR=52 BPM, Rhythm=sr, HTQZ=531/60 mmhg, Chest Pain=0, Edema=None, [place] r=Normal, Skin = Warm, Dry Lower Right Extremities: Color=Normal 10:12:28 Lower Left Extremities: Color=Normal Neurological: State=Alert, Ox3, ALVARADO Respiration: Resp=16 B/min, SpO2=99 %, O2=6 lpm 10:13:17 Bedside Report will be given. 10:13:23 Implantable Device card placed in patient's chart. 10:17:59 Case End 10:18:33 Patient moved to stretcher End Study - Contrast Media Used In Study Contrast Total Opened (mL) Total Used (mL) Total Wasted (mL) Unspecified 0 0 0 End Study - Radiation Exposure Fluoro Time (minutes) 3.4 End Study - Patient Disposition Complications Transferred To Telemetry Bed
--- NOTE | 2017-01-23 10:21 | PD.CARD ---
SINGLE CHAMBER DEFIB IMPLANT PROCEDURE DATE: Jan 23, 2017 NYHA Classification: Class II (Mild) Prevention: Primary Single Chamber Defib Implant PROCEDURE: Single chamber defibrillator implantation and device testing. INDICATIONS: Ms. Cook is a 61 -year-old female with hx of coronary artery disease, congestive heart failure, ejection fraction 30%, on optimal medical management, previous defib vest who undergo defibrillator implantation for sudden primary prevention. The risks, the nature and the benefit of the procedure are clearly stated to her . Risks include pneumothorax, cardiac perforation, stroke and even . She understood and agreed to proceed. PROCEDURE: As written, informed consent was obtained prior to electrophysiology study, the patient was kept on the table where she was prepped and draped in the sterile fashion. Conscious sedation was initiated and maintained throughout the procedure by anesthesiologist. Once sedation was verified, the left infraclavicular area was anesthetized with 2% Xylocaine. Using modified Seldinger technique, the left subclavian vein was cannulated on one occasion and one guide wire was advanced. Then, using #11 blade scalpel, a 3-cm incision was made two fingerbreadths below left clavicle. This incision was then taken down to the deep fascial layer using Bovie cautery and blunt dissection. Into the inferomedial direction, a device pocket was dissected, then the wire was dissected into the pocket. A 2-0 Vicryl suture was placed around the wires to prevent bleeding. At this point, over the wire, the 9- Stateless dilator and introducer was advanced. As dilator and wire were removed, an active fixation right ventricular pacing, sensing and defibrillatory lead was advanced. After adequate pacing and sensing thresholds were obtained, the lead was secured in the pocket with #2 Ethibond suture. At that point, the pocket was copiously irrigated with antibiotic solution. The leads were connected to the generator and placed into the pocket. I did proceed with NIPS. Initial induction consisted of T-wave shock which induced ventricular fibrillation which was adequately detected and treated by the ICD generator, delivering a 20-joule defibrillatory shock converting the patient back into sinus rhythm. Shocking impedance was 61 ohms, charge time 4.1 seconds. At that point NIPS was complete. I did proceed with wound closure. The deep fascial layer was approximated with 2-0 Vicryl suture in a continuous fashion. The subcutaneous layer was approximated with 2-0 Vicryl suture in a continuous fashion. The subcuticular layer was approximated with 2-0 Vicryl suture in a continuous fashion. Dermabond adhesive was applied to the wound, followed by a sterile pressure dressing. There was no complication. The patient tolerated procedure. Blood loss minimal. 1. Implanted Hardware: The implanted defibrillator generator is a [employer]ik, model number 989225, serial number [id number]. The right ventricular pacing, sensing and defibrillatory lead is a Bi[employer]ik model number 503102, serial number [id number]. 2. Thresholds: The right ventricular pacing threshold in the bipolar mode was 0.6 volts at 0.4 milliseconds, lead impedance 680 ohms and R-wave at 8.2 mV. The right ventricular defibrillatory threshold less than 20 joules shocking, impedance 61 ohms, charge time 4.1 seconds. 3. Settings: The device set in VVI 40 defibrillatory portion for two zones, one zone for ventricular tachycardia between 170 and 250 beats per minute. Initial therapy consists of one burst of ATP, one ramp, 81%, 10 pulse, 10 millisecond decremental, followed by 20, then 30 and all subsequent shocks at 40 joules defibrillatory shock, the second zone for ventricular fibrillation above 240 beats per minute, first therapy at 30 and all subsequent shocks at 40 joules defibrillatory shock. CONCLUSIONS: Successful defibrillator implantation and device testing. COMMENT AND RECOMMENDATIONS: The patient will be transferred to the telemetry unit, will be observed and when stable can be discharged home. Malena Green MD Jan 23, 2017 10:21
[2017-01-23] MEDS ORDERED: MIDAZOLAM HCL 2 MG/2 ML VIAL ONE (10:27)
[2017-01-23] MEDS ORDERED: MAGNESIUM HYDROXIDE SUSP 30 ML CUP PO PRN (10:30)
[2017-01-23] MEDS ORDERED: TEMAZEPAM 15 MG CAP PO PRN (10:30)
[2017-01-23] MEDS ORDERED: ONDANSETRON HCL 4 MG/2 ML VIAL IV PRN (10:30)
[2017-01-23] MEDS ORDERED: oxyCODONE/ACETAMINOPHEN 5 MG/325 MG TAB PO PRN (10:30)
[2017-01-23] MEDS ORDERED: PROPOFOL 200 MG/20 ML AMP IV ONE (11:08)
--- NOTE | 2017-01-23 11:08 | MA ---
cc: JUAN ALBERTO CHAMPION HANSCY M.D. DATE: 01/23/2017 PROCEDURE Electrophysiology study and CS cannulation. INDICATION Mrs. Cook is a 66-year-old female with a history of coronary artery disease, previous PTCA plus stent, ejection fraction 30%, previous defibrillatory vest, referred for electrophysiology study and device implantation. The risks, the nature and the benefit of the procedure were clearly stated to her. The risks include pneumothorax, cardiac perforation, stroke and even . She understood and agreed to proceed. DETAILS OF PROCEDURE After written informed consent was obtained, the patient was brought to the EP lab where she was prepped and draped in the usual sterile fashion. Conscious sedation was initiated and maintained throughout the procedure by the anesthesiologist. Once sedation was verified, the right inguinal area was anesthetized with 2% Xylocaine. Using modified Seldinger technique, the right femoral vein was cannulated on four occasions and four guidewires were advanced. Over the wires three 5 and one 6 [place] Hemaquet were advanced. Then under fluoroscopic guidance through the 5 and 6 [place] Hemaquets, four 5 [place] Ella curved quadripolar electrophysiology catheters were advanced and position on the His, upper right atrium, coronary sinus and right ventricular apex. Basic intervals were measured. They were within normal limits. At this point atrial pacing protocol was performed. Atrial pacing protocol consisted of incremental atrial pacing as well as programmed stimulation with 110 cycle length and up to one extrastimuli delivered. No tachyarrhythmia was induced. Then ventricular pacing protocol was performed. There was no VA conduction. Ventricular pacing protocol consisted of incremental ventricular pacing as well as programmed stimulation with 110 cycle length and up to three extrastimuli delivered. During ventricular pacing protocol multiple episodes of self-limited ventricular tachycardia were induced. At that point because of the blood pressure I decided not to initiate Isuprel and continue ventricular pacing protocol. The procedure was complete. All catheters were removed. The patient is going to be kept on the table and a single-chamber defibrillator will be implanted for sudden primary prevention. No incident report. The patient tolerated the procedure. Blood loss minimal. FINDINGS 1. Electrocardiogram: At baseline the patient was in sinus. Post-procedure electrocardiogram was unchanged. 2. Basic interval: Basic cycle length was around 1200 milliseconds. AH at 72 and HV at 44 milliseconds. 3. Atrial pacing protocol: Wenckebach of the node was around 490 milliseconds. No tachyarrhythmia was induced. ERP of the node was 600, 300 milliseconds. 4. Ventricular pacing protocol: There was no VA conduction. Multiple episodes of self-limited ventricular tachycardia were induced. CONCLUSION Negative electrophysiology study for supraventricular tachyarrhythmia. COMMENT/RECOMMENDATION The patient has an ejection fraction of 30%. She has a defibrillatory vest. She has coronary artery disease on optimal medical treatment. She will be kept on the table and a single-chamber defibrillator will be implanted for sudden primary prevention. Malena Green MD HS/MIROSLAVA /10:31 AM /10:59 AM
--- NOTE | 2017-01-23 11:38 | RADRPT ---
EXAM DATE/TIME: 01/23/2017 10:33 [place] COMPARISON: CHEST SINGLE AP, December 08, 2016, 15:08. INDICATIONS : S/p icd MEDICAL HISTORY : Myocardial infarction. SURGICAL HISTORY : Coronary artery stent. ENCOUNTER: Initial ACUITY: 1 day PAIN SCORE: 9/10 LOCATION: Bilateral chest FINDINGS: A single view of the chest demonstrates the lungs to be symmetrically aerated without evidence of mas s, infiltrate or effusion. An AICD has been placed. There is no evidence of pneumothorax. Lead appear s to be in appropriate position. The cardiomediastinal contours are unremarkable. Osseous structures are intact. CONCLUSION: Status post AICD placement. No acute cardio pulmonary process. Colin Wilburn MD on January 23, 2017 at 11:35 Board Certified Radiologist. This report was verified electronically.
[2017-01-23] MEDS: oxyCODONE/ACETAMINOPHEN 5 MG/325 MG TAB PO PRN ×3 (11:45→20:47)
[2017-01-23] MEDS ORDERED: DOCUSATE SODIUM 100 MG CAP PO PRN (12:45)
[2017-01-23] MEDS ORDERED: FATTY ACIDS PO SCH (13:00)
[2017-01-23] MEDS ORDERED: OMEGA PO SCH (13:00)
[2017-01-23] MEDS: ceFAZolin 2 GM PREMIX 50 ML IV SCH ×2 (16:00→23:09)
[2017-01-23] MEDS: clonazePAM 1 MG TAB PO SCH (16:34)
--- NOTE | 2017-01-23 18:25 | EKG ---
Date Performed: 01/23/2017 Time Performed: 06:58:36 PTAGE: 61 years EKG: Sinus bradycardia. Nonspecific ST-T wave changes Abnormal ECG NO SIGNIFICANT CHANGE FROM [place] IOR ELECTROCARDIOGRAM. PREVIOUS TRACING : 12/08/2016 21.07 DOCTOR: Panda Silva Interpretating Date/Time 01/23/2017 18:23:51
[2017-01-23] MEDS: LISINOPRIL 10 MG TAB PO SCH (20:47)
[2017-01-23] MEDS: CARVEDILOL 6.25 MG TAB PO SCH (20:47)
[2017-01-23] MEDS ORDERED: ATORVASTATIN 40 MG TAB PO SCH (21:00)
[2017-01-24] VITALS (8 sets, daily range): BP systolic 123–132; BP diastolic 59–60; PULSE 52–54; RESP 18; TEMP 98.2–98.4; O2SAT 94–95
[2017-01-24] MEDS ORDERED: CEPH-460 PO (08:07)
--- NOTE | 2017-01-24 08:12 | PD.CARD.PN ---
Subjective Subjective Remarks Feels okay. Objective Medications Current Medications Medications (Trade) Dose Ordered Sig/Kenny Route Start Time Stop Time Status Last Admin Sodium Chloride 1,000 ml @ 30 mls/hr Q24H IV 01/23/17 06:30 Lactated Ringer's 1,000 ml @ 30 mls/hr Q24H PRN IV 01/23/17 06:30 01/26/17 06:29 Sodium Chloride 500 ml @ 30 mls/hr [id number] PRN IV 01/23/17 06:30 01/26/17 06:29 (Ancef 2 Gm Premix) 50 ml @ 100 mls/hr Q8H IV 01/23/17 16:00 01/24/17 08:29 01/23/17 23:09 (Restoril) 15 mg HS PRN PO 01/23/17 10:30 (Milk Of Magnesia Liq) 30 ml Q6H PRN PO 01/23/17 10:30 (Zofran Inj) 4 mg Q4H PRN IV 01/23/17 10:30 (Percocet 5-325 Mg) 1 tab Q4H PRN PO 01/23/17 10:30 (Percocet 5-325 Mg) 2 tab Q4H PRN PO 01/23/17 10:30 01/23/17 20:47 (Lipitor) 40 mg HS PO 01/23/17 21:00 01/23/17 20:47 (Coreg) 6.25 mg BID PO 01/23/17 21:00 01/23/17 20:47 (Vitamin D3) 1,000 units DAILY PO 01/24/17 09:00 (CeleXA) 20 mg DAILY PO 01/24/17 09:00 (KlonoPIN) 2 mg TID PO 01/23/17 13:00 01/23/17 16:34 (Vitamin B12) 1,000 mcg DAILY PO 01/24/17 09:00 (Colace) 100 mg DAILY PRN PO 01/23/17 12:45 (Prinivil) 10 mg BID PO 01/23/17 21:00 01/23/17 20:47 Vital Signs / I&O Vital Signs Date Time Temp Pulse Resp B/P Pulse Ox O2 Delivery O2 Flow Rate FiO2 01/24/17 06:00 54 01/24/17 05:00 54 01/24/17 04:00 95 Room Air 01/24/17 04:00 53 01/24/17 04:00 98.2 53 18 132/60 95 01/24/17 03:00 54 01/24/17 02:00 54 01/24/17 01:00 52 01/24/17 00:00 98.4 52 18 126/59 94 01/24/17 00:00 52 01/24/17 00:00 94 Room Air 01/23/17 23:00 48 01/23/17 22:00 50 01/23/17 21:47 20 01/23/17 21:00 54 01/23/17 20:00 98.3 52 18 127/60 95 01/23/17 20:00 95 Room Air 01/23/17 20:00 62 01/23/17 19:00 52 01/23/17 18:00 54 01/23/17 17:00 48 01/23/17 16:00 52 01/23/17 15:00 97.9 53 20 140/59 97 01/23/17 15:00 52 01/23/17 15:00 96 Room Air 01/23/17 11:03 98 I/O 01/23/17 01/23/17 01/23/17 01/24/17 01/24/17 01/24/17 07:00 15:00 23:00 07:00 15:00 23:00 Intake Total 750 ml 770 ml Output Total 600 ml Balance 150 ml 770 ml Intake Oral 700 ml 720 ml IV Total 50 ml 50 ml Output Urine Total 600 ml # Voids 2 # Bowel Movements 0 0 Physical Exam GENERAL: Well-nourished, well-developed patient. SKIN: Warm and dry. Left chest wall incision well approximated without erythema or drainage. HEAD: Normocephalic. EYES: No scleral icterus. No injection or drainage. NECK: Supple, trachea midline. No JVD or lymphadenopathy. CARDIOVASCULAR: Regular rate and rhythm without murmurs, gallops, or rubs. RESPIRATORY: Breath sounds equal bilaterally. No accessory muscle use. GASTROINTESTINAL: Abdomen soft, non-tender, nondistended. EXTREMITIES: No cyanosis, or edema. NEUROLOGICAL: Awake, alert, and oriented x 3. Non-focal. Imaging Last Impressions Chest X-Ray 01/23/17 0000 Signed Impressions: Service Date/Time: Monday, January 23, 2017 10:33 - CONCLUSION: Status post AICD placement. No acute cardio pulmonary process. Colin Wilburn MD Assessment and Plan Problem List: (1) Cardiomyopathy Assessment and Plan: EF 30%. Wearing defibrillator vest for sudden cardiac prevention. Needs permanent ICD implantation. (2) S/P ICD (internal cardiac defibrillator) procedure Assessment and Plan: Stable status post ICD implantation. Device functioning appropriately. Chest x-ray shows no pneumothorax. Discharge home. Follow-up with Dr. Green in 2 weeks per my discussion with him. Assessment and Plan Discussed with patient, RN, Dr. Green. Problem Qualifiers (1) Cardiomyopathy: Qualified Code: I25.5 - Ischemic cardiomyopathy Essence Golden Jan 24, 2017 08:12
[2017-01-24] MEDS: CARVEDILOL 6.25 MG TAB PO SCH (08:15)
[2017-01-24] MEDS: LISINOPRIL 10 MG TAB PO SCH (08:16)
[2017-01-24] MEDS: clonazePAM 1 MG TAB PO SCH (08:16)
[2017-01-24] MEDS: oxyCODONE/ACETAMINOPHEN 5 MG/325 MG TAB PO PRN (08:16)
[2017-01-24] MEDS: ceFAZolin 2 GM PREMIX 50 ML IV SCH (08:17)
[2017-01-24] MEDS ORDERED: CITALOPRAM HYDROBROMIDE 20 MG TAB PO SCH (09:00)
[2017-01-24] MEDS ORDERED: CHOLECALCIFEROL (VIT D3) 1000 UNIT TAB PO SCH (09:00)
[2017-01-24] MEDS ORDERED: CYANOCOBALAMIN 100 MCG TAB PO SCH (09:00)
== END 2017-01-24 12:30 | disposition home or self-care (01) ==
LOC: HDOC 06:01 → HDIC 06:01 → HCIS 15:33 → HDOC 01-24 12:30
PROVIDERS: ATTEND Internal Medicine Interventional Cardiology
DX: I50.9 Heart failure, unspecified (principal); I25.10 Atherosclerotic heart disease of native coronary artery without angina pectoris; I42.9 Cardiomyopathy, unspecified; Z98.61 Coronary angioplasty status; Z01.818 Encounter for other preprocedural examination
CPT/HCPCS: 33249; 71010; 80048; 85025; 85610; 85730; 86850; 86900; 86901; 93005; 93620; 93623; C1722; C1730; C1777; J0690; J2250; J3010; J3370; J7050

== ENCOUNTER 2017-11-28 21:29 | Emergency (ER) | payer OTHER ==
[~2017-11-28] VITALS: Ht 172.7 cm; Wt 70.6 kg
[~2017-11-28 21:29] MED LIST changes: -ACET500T36 PO; -ASPI1TAB69 PO; +ASPI81CH6 CHEW; +CEPH-460 PO; +CHOL10008 PO; +CYAN100 PO; +DOCU1CAP66 PO; +LACTCAP8 PO; +MAPA500T13 PO; -STOO100C PO; -VITA100036 PO; -VITA100T15 PO; -[UNRECOGNIZED DRUG - OTHER]
[2017-11-28 21:34] VITALS: BP 129/64; PULSE 69; RESP 16; TEMP 98.2; O2SAT 98
--- NOTE | 2017-11-28 22:09 | PD ---
HPI Chief Complaint: Abdominal Pain Time Seen by Provider: 21:51 Travel History International Travel<30 days: No Contact w/Intl Traveler<30days: No Traveled to known affect area: No History of Present Illness HPI The patient is a 62-year-old female who presents to the emergency department for abdominal pain. The patient states she developed abdominal pain one week ago Sunday. The patient states abdominal pain is located in the lower aspect of the abdomen, feels like there is "pressure "in the lower abdomen. The patient does note decreased ability to have a bowel movement over the last week, on Sunday was able to have a few small hard stools. The patient then used an enema last night but only had watery return. The patient does note decreased appetite but denies any nausea or vomiting. She denies any significant abdominal distention. She does have a history of section as her only previous abdominal surgery. She denies any history of obstruction. She does note a history of constipation. She denies any dysuria, frequency, or urgency. Symptoms are moderate. PFSH Past Medical History Hx Anticoagulant Therapy: Yes (BABY ASA DAILY) Arthritis: Yes Anxiety: Yes Depression: Yes Cancer: No Cardiac Catheterization: Yes Cardiovascular Problems: Yes (HTN, NH, AICD) Chest Pain: Yes Cerebrovascular Accident: No Diminished Hearing: No Endocrine: No Gastrointestinal Disorders: No Genitourinary: Yes (Hematuria ) Headaches: Yes Immune Disorder: No Implanted Vascular Access Dvce: No Kidney Stones: No Musculoskeletal: Yes (Spinal stenosis) Neurologic: Yes Psychiatric: Yes Reproductive: Yes (Fibroids) Respiratory: No Immunizations Current: Yes Migraines: No Myocardial Infarction: Yes (X's 1) Renal Failure: No Seizures: No ?: Not Menopausal: Yes Past Surgical History Section: Yes (X's 1) Coronary Stent: Yes (X's 1, December 2013) Gynecologic Surgery: Yes (CECAREAN SECTION 38 YEARS AGO.) Other Surgery: Yes Social History Alcohol Use: Yes ("Rarely?) Tobacco Use: Yes (08/16 PPD) Substance Use: No Allergies-Medications (Allergen,Severity, Reaction): Coded Allergies: venlafaxine (Unverified Allergy, Severe, GI UPSET, 11/28/17) prasugrel (Unverified Allergy, Unknown, 11/28/17) Reported Meds & Prescriptions Reported Meds & Active Scripts Active Keflex (Cephalexin) 500 Mg Cap 500 Mg PO Q8H 3 Days Reported Probiotic (Lactobacillus Acidophilus) 1 Cap Cap 1 Cap PO TIDAC Aspirin Low Dose (Aspirin) 81 Mg Chew 81 Mg CHEW DAILY Mapap Extra Strength (Acetaminophen) 500 Mg Tab 500 Mg PO Q4-6H PRN Vitamin D3 (Cholecalciferol) 1,000 Unit Cap 1,000 Units PO DAILY Vitamin B12 (Cyanocobalamin) 100 Mcg Tab 1,000 Mcg PO DAILY Fish Oil ([place]-3 Fatty Acids) 500 Mg Cap 300 Mg PO TID Stool Softener (Docusate Sodium) 100 Mg Cap 1 Caplet PO DAILY PRN Citalopram (Citalopram Hydrobromide) 20 Mg Tab 20 Mg PO DAILY Clonazepam 2 Mg Tab 2 Mg PO TID Nitrostat SL (Nitroglycerin) 0.4 Mg Subl 0.4 Mg SL DIRECTED PRN 1 tablet under the tongue as needed for chest pain. Repeat every 5 minutes for a total of 3 DOSES or call 911 if NO relief. Lisinopril 10 Mg Tab 10 Mg PO BID Atorvastatin (Atorvastatin Calcium) 40 Mg Tab 40 Mg PO HS Carvedilol 6.25 Mg Tab 6.25 Mg PO BID Review of Systems Except as stated in HPI: all other systems reviewed are Neg General / Constitutional: No: Fever Cardiovascular: No: Chest Pain or Discomfort Respiratory: No: Shortness of Breath Gastrointestinal: Positive: Abdominal Pain, Constipation, Changes in Bowel Habits, Loss of Appetite, No: Nausea, Vomiting, Diarrhea Genitourinary: No: Urgency, Frequency, Dysuria Physical Exam Narrative GENERAL: Awake, alert, pleasant 62-year-old female who appears her stated age and is in no acute respiratory distress. SKIN: Focused skin assessment warm/dry. HEAD: Atraumatic. Normocephalic. EYES: Pupils equal and round. No scleral icterus. No injection or drainage. ENT: No nasal bleeding or discharge. Mucous membranes pink and moist. NECK: Trachea midline. No JVD. CARDIOVASCULAR: Regular rate and rhythm. No murmur appreciated. RESPIRATORY: No accessory muscle use. Clear to auscultation. Breath sounds equal bilaterally. GASTROINTESTINAL: Abdomen soft, non-tender, nondistended. No rebound tenderness. No guarding or rigidity. Negative McBurney's. Negative Vasquez's. Back: No CVA tenderness. Rectal: The exam was performed in the presence of a female nurse. No fecal impaction noted. No gross blood. MUSCULOSKELETAL: No obvious deformities. No clubbing. No cyanosis. No edema. NEUROLOGICAL: Awake and alert. No obvious cranial nerve deficits. Motor grossly within normal limits. Normal speech. PSYCHIATRIC: Appropriate mood and affect; insight and judgment normal. Data Data Last Documented VS Vital Signs Date Time Temp Pulse Resp B/P (MAP) Pulse Ox O2 Delivery O2 Flow Rate FiO2 11/28/17 21:34 98.2 69 16 129/64 (85) [address] Abd/Pel W/O Iv Contrast (11/28/17 ) [facility] Medical Decision Making Medical Screen Exam Complete: Yes Emergency Medical Condition: Yes Medical Record Reviewed: Yes Interpretation(s) CT of the abdomen and pelvis reveals no obstruction or acute inflammatory changes are demonstrated. Normal amount of stool in the colon. 6.1 cm right adnexal cyst, not expected, in a patient this age but appears fairly simple. No associated free fluid or inflammatory changes. There is mild mass-effect on the rectum. A couple benign cyst of the left kidney. Differential Diagnosis Differential diagnosis includes constipation, fecal impaction, sigmoid volvulus , small bowel obstruction, large bowel obstruction, diverticulitis, UTI. Narrative Course Rectal exam was performed in the presence of a female nurse, there is no fecal impaction noted. The patient may have a small bowel obstruction versus constipation versus diverticulitis, therefore, noncontrast CT of the abdomen and pelvis was performed. CT of the abdomen and pelvis reveals a 6.1 cm right adnexal cyst that appears fairly simple but does create mild mass-effect on the rectum. The patient will be provided a copy of her CT results. She is advised to follow-up with a primary physician that she will need outpatient ultrasound and possible follow-up. Diagnosis Primary Impression: Adnexal cyst Patient Instructions: General Instructions Additional Instructions: Please provide the patient a copy of her CT results at discharge. Follow-up with your primary physician, you may benefit from outpatient ultrasound to better evaluate the adnexal cyst. Return if symptoms worsen or progress. Med/Other Pt SpecificInfo: Prescription(s) given Scripts Tramadol (Tramadol) 50 Mg Tab 50 MG PO Q6H Y for PAIN, #12 TAB 0 Refills Prov: Paul Levine MD 11/28/17 Disposition: 01 DISCHARGE HOME Condition: Stable Paul Levine MD Nov 28, 2017 22:09
--- NOTE | 2017-11-28 23:09 | RADRPT ---
EXAM DATE/TIME: 11/28/2017 22:37 [facility] COMPARISON: No previous studies available for comparison. INDICATIONS : Abdominal pain with constipation. ORAL CONTRAST: No oral contrast ingested. RADIATION DOSE: 11.85 CTDIvol (mGy) MEDICAL HISTORY : Hypertension. Myocardial infarction. SURGICAL HISTORY : section. Coronary stent. ENCOUNTER: Initial ACUITY: 1 week PAIN SCALE: 6/10 LOCATION: lower quadrant abdomen TECHNIQUE: Volumetric scanning of the abdomen and pelvis was performed. Using automated exposure control and ad justment of the mA and/or kV according to patient size, radiation dose was kept as low as reasonably achievable to obtain optimal diagnostic quality images. DICOM format image data is available electro nically for review and comparison. FINDINGS: LOWER LUNGS: The visualized lower lungs are clear. LIVER: Homogeneous density without lesion. There is no dilation of the biliary tree. No calcified gallston es. SPLEEN: Normal size without lesion. PANCREAS: Within normal limits. KIDNEYS: There are 1.0 and 3.4 cm cyst of the lower pole of the left kidney. ADRENAL GLANDS: Within normal limits. VASCULAR: Atherosclerotic aorta. No aneurysm. BOWEL/MESENTERY: The stomach, small bowel, and colon demonstrate no acute abnormality. There is no free intraperitone al air or fluid. Normal appendix. ABDOMINAL WALL: Within normal limits. RETROPERITONEUM: There is no lymphadenopathy. BLADDER: No wall thickening or mass. REPRODUCTIVE: There is a 6.1 cm cyst in the right adnexal region. The there is some associated mass effect and left felix deviation of the rectum. Subcentimeter benign-appearing right adnexal calcifications are seen as well. INGUINAL: There is no lymphadenopathy or hernia. MUSCULOSKELETAL: No acute bony abnormality demonstrated. CONCLUSION: 1. No obstruction or acute inflammatory changes are demonstrated. Normal amount of stool in the colon . 2. 6.1 cm right adnexal cyst, not expected in a patient this age but appears fairly simple. No associ ated free fluid or inflammatory changes. There is mild mass effect on the rectum. 3. A couple benign cysts of the left kidney. Jose Alfredo Marie MD on November 28, 2017 at 23:04 Board Certified Radiologist. This report was verified electronically.
[2017-11-28] MEDS ORDERED: TRAM50TA PO (23:18)
[2017-11-29 00:03] VITALS: BP 126/72
== END 2017-11-29 00:05 | disposition home or self-care (01) ==
LOC: PHED 21:29
DX: N83.201 Unspecified ovarian cyst, right side (principal); Q61.02 Congenital multiple renal cysts; M19.90 Unspecified osteoarthritis, unspecified site; F41.9 Anxiety disorder, unspecified; F32.9 Major depressive disorder, single episode, unspecified; I10 Essential (primary) hypertension; I25.2 Old myocardial infarction; F17.200 Nicotine dependence, unspecified, uncomplicated; Z79.82 Long term (current) use of aspirin
CPT/HCPCS: 74176; 99283